=== PATIENT | female | born 1975 | race Caucasian/White ===

== ENCOUNTER 2016-09-20 19:23 | Inpatient (IN) | payer MEDICAID, OTHER ==
[~2016-09-20] VITALS: Ht 162.6 cm; Wt 72.6 kg
[2016-09-20 19:55] VITALS: BP 129/113
[2016-09-20] MEDS ORDERED: Solu-MEDROL 125mg Inj IVP ONE (20:00)
[2016-09-20] MEDS ORDERED: Dicyclomine HCl 10mg/5ml oral soln ORAL ONE (20:15)
--- NOTE | 2016-09-20 20:15 | Emergency Room Report ---
History of Present Illness General Chief Complaint: Diarrhea Source: Patient Present Illness HPI [id number] presents with multiple episodes of watery diarrhea without abd pain, nausea/vomiting or fever/chills associated with now-resolved lower extremity weakness, unable to walk. History of MS, "I'm on every medication" but not on steroids. Last MS exacerbation was years ago. Allergies: Coded Allergies: No Known Allergies (Unverified , 09/20/16) Patient History Past Medical History: other - MS Past Surgical History: none Pertinent Family History: none Social History: Denies: alcohol use, drug use, smoking Last Menstrual Period: 2 days ago Now: No Immunizations: UTD Reviewed Nursing Documentation: PMH: Agreed, PSxH: Agreed Review of Systems All Other Systems: negative except mentioned in HPI Physical Exam Vital Signs Date Time Temp Pulse Resp B/P Pulse Ox O2 Delivery O2 Flow Rate FiO2 09/20/16 19:37 99.0 98 16 129/78 97 Room Air Sp02 EP Interpretation: reviewed, normal General Appearance: normal inspection, well appearing, no apparent distress, alert, GCS 15, non-toxic Head: normocephalic, atraumatic Eyes: bilateral eye EOMI, bilateral eye PERRL ENT: normal ENT inspection, hearing grossly normal, normal voice Neck: normal inspection, full range of motion, supple, no bony tend Respiratory: normal inspection, lungs clear, normal breath sounds, no respiratory distress, no retraction, no wheezing Cardiovascular #1: regular rate, rhythm, no edema Gastrointestinal: normal inspection, normal bowel sounds, non tender, soft, no guarding, no hernia Genitourinary: no CVA tenderness Musculoskeletal: normal inspection, back normal, normal range of motion, Carmina' s Sign negative Neurologic: normal inspection, alert, oriented x3, responsive, fingernail technician III-XII nml as tested, motor strength/tone normal, DTRs symmetric, speech normal Psychiatric: normal inspection, judgement/insight normal, mood/affect normal Skin: normal inspection, normal color, no rash Lymphatic: normal inspection Medical Decision Making Diagnostic Impression: Primary Impression: Diarrhea Qualified Codes: R19.7 - Diarrhea, unspecified Additional Impressions: Weakness Multiple sclerosis exacerbation ER Course No focal neuro deficits currently. VSS. Afebrile. Airway patent. Labs: No leuks. H&H stable. No metabolic derangement. Per Uptodate, scheduled 500mg BID methylsolumedrol for presumed MS exacerbation. Will need MRI on the medicine floor Diarrhea approved with medication Endorsed to Dr Singh for PANEL admission/med surg at 853pm. Rhythm Strip Diag. Results EP Interpretation: yes Rate: 83 Rhythm: NSR, no PVC's, no ectopy Last Vital Signs Date Time Temp Pulse Resp B/P Pulse Ox O2 Delivery O2 Flow Rate FiO2 09/20/16 19:37 99.0 98 16 129/78 97 Room Air Status: improved Disposition: ADMITTED INPATIENT Condition: Serious MICHELLE BARKSDALE M.D. Sep 20, 2016 20:15
[2016-09-20 20:19] LABS: BASOPHILS % (AUTO) 1.1 % (0.0-2.0); EOSINOPHILS % (AUTO) 0.3 % (0.0-3.0); LYMPHOCYTES % (AUTO) 13.7 % (20.0-45.0); MEAN CORPUSCULAR HEMOGLOBIN 32.7 PG (27.0-31.0); MEAN CORPUSCULAR HGB CONC 33.8 G/DL (32.0-36.0); MEAN CORPUSCULAR VOLUME 97 FL (80-99); MEAN PLATELET VOLUME 7.8 FL (6.5-10.1); NEUTROPHILS % (AUTO) 79.9 % (45.0-75.0); PLATELET COUNT 222 K/UL (150-450); RED BLOOD COUNT 4.56 M/UL (4.20-5.40); RED CELL DISTRIBUTION WIDTH 11.8 % (11.6-14.8); WHITE BLOOD COUNT 7.4 K/UL (4.8-10.8)
[2016-09-20 20:34] LABS: ALANINE AMINOTRANSFERASE 23 U/L (3-33); ALBUMIN/GLOBULIN RATIO 1.6 (1.0-2.7); ANION GAP 17 (5-15); ASPARTATE AMINO TRANSFERASE 19 U/L (5-40); CALCIUM 9.6 mg/dL (8.6-10.2); CARBON DIOXIDE 24 mEQ/L (20-30); CHLORIDE 96 mEQ/L (98-107); CREATININE 0.6 mg/dL (0.5-0.9); GLOMERULAR FILTRATION RATE > 60 mL/min (>60); HEMOLYSIS 9; POTASSIUM 4.1 mEQ/L (3.4-4.9); SODIUM 137 mEQ/L (135-145); TOTAL PROTEIN 7.2 g/dL (6.6-8.7)
[2016-09-20 22:10] VITALS: BP 111/57
[2016-09-20] MEDS ORDERED: UNOBMED (22:34)
[2016-09-20 22:57] LABS: APPEARANCE,URINE CLEAR; KETONES,URINE NEGATIVE (NEGATIVE); LEUKOCYTE ESTERASE ,URINE 1+ (NEGATIVE); NITRITE,URINE NEGATIVE (NEGATIVE); PH,URINE 7 (4.5-8.0); PROTEIN,URINE 1+ (NEGATIVE); UROBILINOGEN,URINE NORMAL MG/DL (0.0-1.0)
[2016-09-20 23:25] LABS: BACTERIA,URINE MODERATE /HPF; SQUAMOUS EPITHELIAL CELL,UR MODERATE /LPF (NONE/OCC)
--- NOTE | 2016-09-20 23:56 | History & Physical ---
History and Physical History & Physicial H&P dictated [id number] KIEL SANTANA M.D. Sep 20, 2016 23:56
[2016-09-21] VITALS: BP 117/64
[2016-09-21] MEDS ORDERED: Morphine Sulfate 4mg/ml Inj IVP PRN
[2016-09-21] MEDS ORDERED: Morphine Sulfate 2mg/ml Inj IVP PRN
[2016-09-21] MEDS ORDERED: TECFIDERA240 MG PO (00:22)
[2016-09-21] MEDS ORDERED: CENTRUM COMPLE1 EAC1 PO (00:22)
[2016-09-21] MEDS ORDERED: TRILEPTAL600 MG PO (00:22)
[2016-09-21] MEDS ORDERED: TRAZODONE HCL50 MG ORAL (00:22)
[2016-09-21] MEDS ORDERED: ASPIRIN EC81 MG ORAL (00:22)
[2016-09-21] MEDS ORDERED: ZANTAC150 MG ORAL (00:22)
[2016-09-21] MEDS ORDERED: AZELASTINE137 MCG/0. NS (00:22)
[2016-09-21] MEDS ORDERED: AMPYRA10 MG PO (00:22)
[2016-09-21] MEDS ORDERED: SYSTANE BALANCE10 M1 OP (00:22)
[2016-09-21] MEDS: TraZODone 50mg tab ORAL PRN ×2 (00:59→21:52)
[2016-09-21 04:00] VITALS: BP 123/68
[2016-09-21 07:13] LABS: MEAN CORPUSCULAR HEMOGLOBIN 32.3 PG (27.0-31.0); MEAN CORPUSCULAR HGB CONC 34.2 G/DL (32.0-36.0); MEAN CORPUSCULAR VOLUME 94 FL (80-99); MEAN PLATELET VOLUME 7.7 FL (6.5-10.1); PLATELET COUNT 234 K/UL (150-450); RED BLOOD COUNT 4.55 M/UL (4.20-5.40); RED CELL DISTRIBUTION WIDTH 11.5 % (11.6-14.8); WHITE BLOOD COUNT 6.6 K/UL (4.8-10.8)
[2016-09-21 07:47] LABS: ANION GAP 18 (5-15); CALCIUM 9.5 mg/dL (8.6-10.2); CARBON DIOXIDE 22 mEQ/L (20-30); CHLORIDE 99 mEQ/L (98-107); CREATININE 0.6 mg/dL (0.5-0.9); GLOMERULAR FILTRATION RATE > 60 mL/min (>60); HEMOLYSIS 5; POTASSIUM 3.9 mEQ/L (3.4-4.9); SODIUM 139 mEQ/L (135-145)
[2016-09-21 08:13] VITALS: BP 99/52
[2016-09-21] MEDS ORDERED: Solu-MEDROL 125mg Inj IVP SCH (09:00)
[2016-09-21] MEDS: Aspirin EC 81mg tab ORAL SCH (09:00)
[2016-09-21] MEDS: Heparin 5000 units/ml inj SUBQ SCH ×2 (09:00→20:37)
--- NOTE | 2016-09-21 09:17 | History and Physical Report ---
DATE OF ADMISSION: 09/20/2016 HISTORY OF PRESENT ILLNESS: This is a 41-year-old female with history of relapsing remitting multiple sclerosis with last flare November 2015 who presents to the emergency room with lower extremity weakness as well as short-term amnesia. She does not remember what she ate today and why she is in the emergency room, other than lower extremity weakness, but does not remember when. She states that she is forgetting everything. She states that she has lower extremity weakness has resolved, however, prior to that she was unable to walk. She is followed by Dr. Perdoom as an outpatient. She takes several medications for MS, but does not remember what they are. She denies any urinary symptoms, fevers, chills, or any kind of infection. The patient was given Solu-Medrol 500 mg x1 in the ER. PAST MEDICAL HISTORY: Includes multiple sclerosis and anxiety. PAST SURGICAL HISTORY: None. MEDICATIONS: Reviewed from previous notes from [facility]. ALLERGIES: Ambien. SOCIAL HISTORY: The patient is a former smoker, but quit in 1999. No alcohol use. No drug use. FAMILY HISTORY: Noncontributory. REVIEW OF SYSTEMS: A 14-point review of systems is negative except for pertinent positives as mentioned above. PHYSICAL EXAMINATION: GENERAL: The patient is no acute distress. The patient is awake, alert, and oriented x3. VITAL SIGNS: Temperature is 98.2 degrees, pulse is 73, respiratory rate is 27, and blood pressure 111/67. HEENT: Normocephalic/atraumatic. NECK: Supple. No JVD. LUNGS: Clear to auscultation bilaterally. No crackles, rhonchi, or rales. CARDIOVASCULAR: Regular rate and rhythm. Normal S1 and S2. ABDOMEN: Soft, nontender, and nondistended. EXTREMITIES: No clubbing, cyanosis, or edema. PSYCHIATRIC: Appropriate mood and affect. LABORATORY AND DIAGNOSTIC DATA: CBC, white count 7.54, hemoglobin 14.9, and platelet count is 222,000. BMP, sodium 137, potassium 4.1, chloride 96, CO2 24, BUN 16, and creatinine 0.4. UA is 2 to 4 WBCs and 5 to 10 RBCs. ASSESSMENT AND PLAN: 1. Lower extremity weakness likely secondary to multiple sclerosis flare. 2. Multiple sclerosis, relapsing, remitting. 3. Anxiety disorder. PLAN: 1. Status post Solu-Medrol in the emergency room. 2. We will treat with 1 gram Solu-Medrol IV x3 days. 3. MRI of the brain and spine with and without contrast. 4. Continue home medications. 5. IV fluids. 6. DVT prophylaxis with heparin. TIME SPENT: Time spent on this patient is greater than 35 minutes. Osiel Singh MD DR: Thais JOB#: [id number] CC: RITO
[2016-09-21 09:41] LABS: BAND NEUTROPHILS % (MANUAL) 0 % (0-8); BASOPHILS % (MANUAL) 0 % (0-2); EOSINOPHILS % (MANUAL) 0 % (0-3); LYMPHOCYTES % (MANUAL) 12 % (20-45); NEUTROPHILS % (MANUAL) 86 % (45-75); PLATELET ESTIMATE ADEQUATE; PLATELET MORPHOLOGY NORMAL; TOTAL CELLS COUNTED 100
--- NOTE | 2016-09-21 10:19 | Diagnostic Imaging Report ---
Indication: Shortness of breath Technique: Single portable AP view of the chest. Findings: Comparison: None. The bones and extra pulmonary soft tissues, cardiomediastinal silhouette, pulmonary vasculature and parenchyma, and pleural surfaces are unremarkable. IMPRESSION: Negative portable AP chest.
[2016-09-21] MEDS ORDERED: LORazepam Inj 2mg/ml 1ml IV ONE (10:30)
--- NOTE | 2016-09-21 10:42 | Internal Med Progress Note ---
Subjective Date of Service: Sep 21, 2016 Physician Name Karlo Luna Attending Physician Osiel Singh M.D. Current Medications Medications (Trade) Dose Ordered Sig/Onesimo Route PRN Reason Start Time Stop Time Status Last Admin Dose Admin Acetaminophen (Tylenol) 650 mg Q4H PRN ORAL Mild Pain (Pain Scale 1-3) 09/21/16 00:00 10/21/16 00:00 Aspirin (Ecotrin) 81 mg DAILY ORAL 09/21/16 09:00 10/21/16 08:59 Dextrose (Dextrose 50%) STAT PRN IV Hypoglycemia 09/21/16 00:00 10/21/16 00:00 Diphenhydramine HCl (Benadryl) 25 mg Q6H PRN ORAL Itching/Pruritis 09/21/16 00:00 10/21/16 00:00 Heparin Sodium (Porcine) (Heparin 5000 units/ml) 5,000 units EVERY 12 HOURS SUBQ 09/21/16 09:00 10/21/16 08:59 Methylprednisolone Sodium Succinate (Solu-MEDROL) 1,000 mg DAILY IVP 09/21/16 09:00 09/22/16 12:00 Morphine Sulfate (Morphine Sulfate) 2 mg Q4H PRN IVP Moderate Pain (Pain Scale 4-6) 09/21/16 00:00 09/28/16 00:00 Morphine Sulfate (Morphine Sulfate) 4 mg Q4H PRN IVP Severe Pain (Pain Scale 7-10) 09/21/16 00:00 09/28/16 00:00 Multivitamins (Multivitamins) 1 tab DAILY ORAL 09/21/16 09:00 10/21/16 08:59 Ondansetron HCl (Zofran) 4 mg Q6H PRN IVP Nausea & Vomiting 09/21/16 00:00 10/21/16 00:00 Oxcarbazepine (Trileptal) 300 mg BID ORAL 09/21/16 09:00 10/21/16 08:59 Ranitidine HCl (Zantac) 150 mg TWICE A DAY ORAL 09/21/16 09:00 10/21/16 08:59 Sodium Chloride (Sodium Chloride 1000ml bag) 1,000 ml @ 75 mls/hr [id number] IVLG 09/21/16 00:59 10/21/16 00:58 Trazodone HCl (Desyrel) 50 mg BEDTIME PRN ORAL Insomnia 09/21/16 00:30 10/21/16 00:29 09/21/16 00:59 Allergies: Coded Allergies: No Known Allergies (Unverified , 09/20/16) ROS Limited/Unobtainable: No Constitutional: Reports: no symptoms HEENT: Reports: no symptoms Cardiovascular: Reports: no symptoms Respiratory: Reports: no symptoms Gastrointestinal/Abdominal: Reports: no symptoms Genitourinary: Reports: no symptoms Neurologic/Psychiatric: Reports: weakness - Bilat leg weakness Subjective 41 YO F admitted with bilat lower extremity weakness and Multiple Sclerosis exacerbation. Await MRI and Neurology consult. Cover for Int Med-Dr Singh. Objective Last Vital Signs Date Time Temp Pulse Resp B/P Pulse Ox O2 Delivery O2 Flow Rate FiO2 09/21/16 08:13 98.1 81 20 99/52 97 09/21/16 04:00 Room Air Laboratory Tests Test 09/20/16 20:11 09/20/16 22:35 09/21/16 06:15 White Blood Count 7.4 K/UL (4.8-10.8) 6.6 K/UL (4.8-10.8) Red Blood Count 4.56 M/UL (4.20-5.40) 4.55 M/UL (4.20-5.40) Hemoglobin 14.9 G/DL (12.0-16.0) 14.7 G/DL (12.0-16.0) Hematocrit 44.1 % (37.0-47.0) 42.9 % (37.0-47.0) Mean Corpuscular Volume 97 FL (80-99) 94 FL (80-99) Mean Corpuscular Hemoglobin 32.7 PG (27.0-31.0) H 32.3 PG (27.0-31.0) H Mean Corpuscular Hemoglobin Concent 33.8 G/DL (32.0-36.0) 34.2 G/DL (32.0-36.0) Red Cell Distribution Width 11.8 % (11.6-14.8) 11.5 % (11.6-14.8) L Platelet Count 222 K/UL (150-450) 234 K/UL (150-450) Mean Platelet Volume 7.8 FL (6.5-10.1) 7.7 FL (6.5-10.1) Neutrophils (%) (Auto) 79.9 % (45.0-75.0) H % (45.0-75.0) Lymphocytes (%) (Auto) 13.7 % (20.0-45.0) L % (20.0-45.0) Monocytes (%) (Auto) 5.0 % (1.0-10.0) % (1.0-10.0) Eosinophils (%) (Auto) 0.3 % (0.0-3.0) % (0.0-3.0) Basophils (%) (Auto) 1.1 % (0.0-2.0) % (0.0-2.0) Sodium Level 137 mEQ/L (135-145) 139 mEQ/L (135-145) Potassium Level 4.1 mEQ/L (3.4-4.9) 3.9 mEQ/L (3.4-4.9) Chloride Level 96 mEQ/L (98-107) L 99 mEQ/L (98-107) Carbon Dioxide Level 24 mEQ/L (20-30) 22 mEQ/L (20-30) Anion Gap 17 (5-15) H 18 (5-15) H Blood Urea Nitrogen 15 mg/dL (7-23) 16 mg/dL (7-23) Creatinine 0.6 mg/dL (0.5-0.9) 0.6 mg/dL (0.5-0.9) Estimat Glomerular Filtration Rate > 60 mL/min (>60) > 60 mL/min (>60) Glucose Level 105 mg/dL (74-106) 171 mg/dL (74-106) H Calcium Level 9.6 mg/dL (8.6-10.2) 9.5 mg/dL (8.6-10.2) Total Bilirubin 0.3 mg/dL (0.0-1.2) Aspartate Amino Transf (AST/SGOT) 19 U/L (5-40) Alanine Aminotransferase (ALT/SGPT) 23 U/L (3-33) Alkaline Phosphatase 46 U/L (35-104) Total Protein 7.2 g/dL (6.6-8.7) Albumin 4.5 g/dL (3.5-5.2) Globulin 2.7 g/dL Albumin/Globulin Ratio 1.6 (1.0-2.7) Urine Color Pale yellow Urine Appearance Clear Urine pH 7 (4.5-8.0) Urine Specific [place] 1.010 (1.005-1.035) Urine Protein 1+ (NEGATIVE) H Urine Glucose (UA) Negative (NEGATIVE) Urine Ketones Negative (NEGATIVE) Urine Occult Blood 4+ (NEGATIVE) H Urine Nitrite Negative (NEGATIVE) Urine Bilirubin Negative (NEGATIVE) Urine Urobilinogen Normal MG/DL (0.0-1.0) Urine Leukocyte Esterase 1+ (NEGATIVE) H Urine RBC 5-10 /HPF (0 - 2) H Urine WBC 2-4 /HPF (0 - 2) Urine Squamous Epithelial Cells Moderate /LPF (NONE/OCC) H Urine Bacteria Moderate /HPF (NONE) H Urine HCG, Qualitative Negative Differential Total Cells Counted 100 Neutrophils % (Manual) 86 % (45-75) H Lymphocytes % (Manual) 12 % (20-45) L Monocytes % (Manual) 2 % (1-10) Eosinophils % (Manual) 0 % (0-3) Basophils % (Manual) 0 % (0-2) Band Neutrophils 0 % (0-8) Platelet Estimate Adequate Platelet Morphology Normal Red Blood Cell Morphology Normal Intake and Output 09/20/16 09/21/16 19:00 07:00 Intake Total 330 ml Balance 330 ml Intake Oral 330 ml # Voids 5 Objective General: alert, cooperative, no distress, appears stated age Head: normocephalic, without obvious abnormality, atraumatic Eyes: conjunctivae/corneas clear. PERRL, EOM's intact Throat: lips, mucosa, and tongue normal. MMM Neck: supple, symmetrical, trachea midline, and no JVD Lungs: clear to auscultation bilaterally Heart: regular rate and rhythm, S1, S2 normal, no murmur, click, rub or gallop Abdomen: soft, non-tender, non-distended, bowel sounds normal; no masses or organomegaly Extremities: extremities normal, atraumatic, no cyanosis or edema. Pulses: 2+ and symmetric Skin: skin color, texture, turgor normal; no rashes or lesions Neurologic: grossly normal, no focal deficits. Motor strength 3/5 bilat lower ext Assessment/Plan Problem List: (1) Anxiety (2) Multiple sclerosis exacerbation Assessment & Plan: Await neurology consult. Await MRI brain and spine. Continue kenzie dose IV solumedrol (3) Weakness (4) Depression Assessment & Plan: continue trazodone. Status: not improved KARLO LUNA Sep 21, 2016 10:42
[2016-09-21] MEDS ORDERED: methylPREDNISolone Sod Succ 1,000 MG in NS 275 ML IVPB SCH (12:00)
--- NOTE | 2016-09-21 13:29 | Diagnostic Imaging Report ---
Indications: Multiple sclerosis, bilateral upper and lower extremity weakness Technique: Sagittal and axial T1 weighted and T2-weighted FLAIR, axial T2-weighted fat saturated fast spin echo, T2*-weighted gradient echo, and diffusion sequences of the brain were performed prior to IV gadolinium administration. Axial and coronal T1 weighted FLAIR sequence was performed following IV gadolinium administration. Findings: Comparison: None Multiple discrete foci of signal change are present throughout the bilateral cerebral periventricular white matter, having the appearance of parenchymal loss. These are surrounded by more confluent T2 signal hyperintensity throughout the bilateral periventricular and, deep, and subcortical white matter. Ventricles, cisterns, sulci are diffusely prominent. No evidence of mass or hemorrhage, mass effect, midline shift, hydrocephalus or increased intracranial pressure. No restricted diffusion. No abnormal enhancement. Central vascular flow is preserved. IMPRESSION: Multiple foci of periventricular signal change/encephalomalacia may represent old areas of demyelination Superimposed diffuse cerebral white matter T2 signal hyperintensity, nonspecific, may represent edema in the setting of acute inflammatory phase (though no gadolinium enhancement to support this), chronic microangiopathic change or other nonspecific leukoencephalopathy Atrophy, prominent for age
--- NOTE | 2016-09-21 13:31 | Diagnostic Imaging Report ---
Indications: Multiple sclerosis, bilateral upper and lower extremity weakness Technique: Sagittal STIR and T1 weighted FLAIR, axial 3-D COSMIC ASPIR, sagittal and axial T2 weighted fast spin echo and T1 weighted fat saturated fast spin echo sequences of the cervical spine performed prior to IV gadolinium administration. Sagittal and axial T1-weighted fat-saturated fast spin-echo sequences performed following IV gadolinium administration. Findings: Comparison: None The cervical spinal cord is normal in configuration and signal characteristics. No focal lesions or abnormal enhancement. Spinal canal is normal in caliber at all levels. No extradural masses or fluid collections. The cervical vertebrae are normal in configuration, signal characteristics, and alignment. No fracture, lytic destruction, or other acute change demonstrated. Intervertebral discs are normal in height without significant annular bulge/protrusion or marginal osteophyte formation. Paraspinous soft tissues are unremarkable. IMPRESSION: Negative MRI of the cervical spine without and with gadolinium
--- NOTE | 2016-09-21 13:34 | Diagnostic Imaging Report ---
Indications: Multiple sclerosis, bilateral upper and lower extremity weakness Technique: Sagittal STIR, sagittal and axial T1 weighted fast spin-echo, T1-weighted fat-saturated fast spin-echo, and T2 weighted fast spin echo sequences of the thoracic performed prior to IV gadolinium administration. Sagittal and axial T1-weighted fat-saturated fast spin-echo sequences performed following IV gadolinium administration. Findings: Comparison: None The thoracic spinal cord is normal in configuration and signal characteristics. No focal lesions or abnormal enhancement. Spinal canal is normal in caliber at all levels. No extradural masses or fluid collections. The thoracic vertebrae are normal in configuration, signal characteristics, and alignment. No fracture, lytic destruction, or other acute change demonstrated. Intervertebral discs are normal in height without significant annular bulge/protrusion or marginal osteophyte formation. Paraspinous soft tissues are unremarkable. IMPRESSION: Negative MRI of the thoracic spine without and with gadolinium
--- NOTE | 2016-09-21 13:37 | Diagnostic Imaging Report ---
Indications: Multiple sclerosis, bilateral upper and lower extremity weakness Technique: Sagittal STIR, sagittal and axial T1 weighted fast spin-echo, T1-weighted fat-saturated fast spin-echo, and T2 weighted fast spin echo sequences of the lumbar spine performed prior to IV gadolinium administration. Sagittal and axial T1-weighted fat-saturated fast spin-echo sequences performed following IV gadolinium administration. Findings: Comparison: None The conus medullaris and cauda equina are normal in configuration and signal characteristics. No focal lesions or abnormal enhancement. Spinal canal is normal in caliber at all levels. No extradural masses or fluid collections. The lumbar vertebrae are normal in configuration, signal characteristics, and alignment. No fracture, lytic destruction, or other acute change demonstrated. Intervertebral discs are normal in height without significant annular bulge/protrusion or marginal osteophyte formation. Paraspinous soft tissues are unremarkable. IMPRESSION: Negative MRI of the lumbar spine without and with gadolinium
[2016-09-21 16:02] VITALS: BP 134/58
--- NOTE | 2016-09-21 18:48 | Neurology Progress Note ---
Interim History Interim History ROS Limited/Unobtainable: Yes Complaints: i feel well Events: cant recall admission Objective Physical Exam Last Vital Signs Date Time Temp Pulse Resp B/P Pulse Ox O2 Delivery O2 Flow Rate FiO2 09/21/16 16:02 99.0 98 18 134/58 97 Room Air Laboratory Tests Test 09/20/16 20:11 09/20/16 22:35 09/21/16 06:15 White Blood Count 7.4 K/UL (4.8-10.8) 6.6 K/UL (4.8-10.8) Red Blood Count 4.56 M/UL (4.20-5.40) 4.55 M/UL (4.20-5.40) Hemoglobin 14.9 G/DL (12.0-16.0) 14.7 G/DL (12.0-16.0) Hematocrit 44.1 % (37.0-47.0) 42.9 % (37.0-47.0) Mean Corpuscular Volume 97 FL (80-99) 94 FL (80-99) Mean Corpuscular Hemoglobin 32.7 PG (27.0-31.0) H 32.3 PG (27.0-31.0) H Mean Corpuscular Hemoglobin Concent 33.8 G/DL (32.0-36.0) 34.2 G/DL (32.0-36.0) Red Cell Distribution Width 11.8 % (11.6-14.8) 11.5 % (11.6-14.8) L Platelet Count 222 K/UL (150-450) 234 K/UL (150-450) Mean Platelet Volume 7.8 FL (6.5-10.1) 7.7 FL (6.5-10.1) Neutrophils (%) (Auto) 79.9 % (45.0-75.0) H % (45.0-75.0) Lymphocytes (%) (Auto) 13.7 % (20.0-45.0) L % (20.0-45.0) Monocytes (%) (Auto) 5.0 % (1.0-10.0) % (1.0-10.0) Eosinophils (%) (Auto) 0.3 % (0.0-3.0) % (0.0-3.0) Basophils (%) (Auto) 1.1 % (0.0-2.0) % (0.0-2.0) Sodium Level 137 mEQ/L (135-145) 139 mEQ/L (135-145) Potassium Level 4.1 mEQ/L (3.4-4.9) 3.9 mEQ/L (3.4-4.9) Chloride Level 96 mEQ/L (98-107) L 99 mEQ/L (98-107) Carbon Dioxide Level 24 mEQ/L (20-30) 22 mEQ/L (20-30) Anion Gap 17 (5-15) H 18 (5-15) H Blood Urea Nitrogen 15 mg/dL (7-23) 16 mg/dL (7-23) Creatinine 0.6 mg/dL (0.5-0.9) 0.6 mg/dL (0.5-0.9) Estimat Glomerular Filtration Rate > 60 mL/min (>60) > 60 mL/min (>60) Glucose Level 105 mg/dL (74-106) 171 mg/dL (74-106) H Calcium Level 9.6 mg/dL (8.6-10.2) 9.5 mg/dL (8.6-10.2) Total Bilirubin 0.3 mg/dL (0.0-1.2) Aspartate Amino Transf (AST/SGOT) 19 U/L (5-40) Alanine Aminotransferase (ALT/SGPT) 23 U/L (3-33) Alkaline Phosphatase 46 U/L (35-104) Total Protein 7.2 g/dL (6.6-8.7) Albumin 4.5 g/dL (3.5-5.2) Globulin 2.7 g/dL Albumin/Globulin Ratio 1.6 (1.0-2.7) Urine Color Pale yellow Urine Appearance Clear Urine pH 7 (4.5-8.0) Urine Specific [place] 1.010 (1.005-1.035) Urine Protein 1+ (NEGATIVE) H Urine Glucose (UA) Negative (NEGATIVE) Urine Ketones Negative (NEGATIVE) Urine Occult Blood 4+ (NEGATIVE) H Urine Nitrite Negative (NEGATIVE) Urine Bilirubin Negative (NEGATIVE) Urine Urobilinogen Normal MG/DL (0.0-1.0) Urine Leukocyte Esterase 1+ (NEGATIVE) H Urine RBC 5-10 /HPF (0 - 2) H Urine WBC 2-4 /HPF (0 - 2) Urine Squamous Epithelial Cells Moderate /LPF (NONE/OCC) H Urine Bacteria Moderate /HPF (NONE) H Urine HCG, Qualitative Negative Differential Total Cells Counted 100 Neutrophils % (Manual) 86 % (45-75) H Lymphocytes % (Manual) 12 % (20-45) L Monocytes % (Manual) 2 % (1-10) Eosinophils % (Manual) 0 % (0-3) Basophils % (Manual) 0 % (0-2) Band Neutrophils 0 % (0-8) Platelet Estimate Adequate Platelet Morphology Normal Red Blood Cell Morphology Normal General: well developed, well nourished, no acute distress Head: atraumatic Neck: no rigidity Neurologic Exam Mental Status: awake, alert, oriented x4, other - poor recent memory, amnestic on events Speech: other - dysarthria, slurred speech Language: no aphasia Cranial Nerve II: other - p 2mm rla fundi poorly seen Cranial Nerves III, IV, : other Cranial Nerve V: normal facial sensations Cranial Nerve VII: no facial asymmetry, normal facial expressions Cranial Nerve VIII: normal hearing, no nystagmus Cranial Nerve IX: normal palate elevation, gag response Cranial Nerve X: no voice hoarseness Cranial Nerve XI: SCM symmetric, trapezii function normal Cranial Nerve XII: tongue midline, no tongue atrophy/fasciculations Motor System: no involuntary movement, no muscle wasting, other - spastic BLE Sensory: normal pinprick Coordination: normal finger to nose bilaterally Deep Tendon Reflexes: 4+ ankle (L), 4+ ankle (R), 4+ bicep (L), 4+ bicep (R), 4 + brachioradialis (L), 4+ brachioradialis (R), 4+ knee (L), 4+ knee (R), 4+ tricep (L), 4+ tricep (R) Reflexes: extensor plantar (L), extensor plantar (R) Impression/Recommendations Problems: (1) Multiple sclerosis exacerbation (2) Diarrhea Status: stable, not improved Recommendations # [id number] off steroids hydrate cont present rx WENDI REESE Sep 21, 2016 18:48
[2016-09-21 20:00] VITALS: BP 105/56
[2016-09-22] VITALS: BP 93/48
--- NOTE | 2016-09-22 00:48 | Consultation ---
DATE OF CONSULTATION: 09/21/2016 HISTORY OF PRESENT ILLNESS: This is a 41 years old female, seen in neurological consultation to evaluate exacerbation of multiple sclerosis. The patient at this point has no recollection of events stating that she is not sure why she is in the hospital. According to medical records, known that she was admitted after having several episodes of watery diarrhea without associated symptoms such as abdominal pain. No nausea or vomiting. No fever, no chills. She was complaining of significant weakness in her both lower extremities, and difficulty with ambulation. She was brought to emergency room with vital signs stable, blood pressure 129/78, heart rate of 98, and temperature 99.0. Her initial laboratory work included normal CBC study, chemistry panel was unremarkable except anion gap of 17, chloride 96, urinalysis with 1+ protein, 1+ leukocyte esterase, and moderate bacteria now. Chest x-ray are negative for any acute changes. Following admission, she was given 500 mg twice a day Solu-Medrol for presumed mass exacerbation, diarrhea improved with treatment. MRI of the cervical, lumbar spine and thoracic spine with and without contrast was negative, MRI of the brain now revealed multiple fossa periventricular signal change with encephalomalacia representing old areas of demyelination, no evidence of acute demyelination noted. Current treatment list included Solu-Medrol 500 mg b.i.d., Benadryl, Bentyl, Tylenol, morphine, Zofran, , Trileptal 300 mg b.i.d. Zantac, trazodone 50 mg at bedtime. Prior to admission, the patient was maintained on aspirin, Tecfidera 240 mg twice a day, ranitidine, trazodone, but also Ampyra 10 milligram twice a day. ALLERGIES: Ambien. PAST MEDICAL HISTORY: The patient has a history of multiple sclerosis for the last 20 years with periodic exacerbation most recently last year, neurological status included abnormal gait, she is using walker or she likes to push a wheelchair in front of her. She is legally blind. SOCIAL HISTORY: Lives with her family, and daughter. She attends daycare, No alcohol, no drug abuse, and nonsmoker. FAMILY HISTORY: Noncontributory. REVIEW OF SYSTEMS: The patient indicates generalized weakness, difficulty ambulation. She has a intermittent headaches, dizzy spells, especially when getting up from supine position. Denies chest pain or palpitations. No respiratory problems. Denies abdominal pain or discomfort. No urinary incontinence. PHYSICAL EXAMINATION: GENERAL: A well-developed, well-nourished female, not in acute distress, lying comfortably in bed after having dinner. VITAL SIGNS: Now stable, she has blood pressure 134/58, temperature 99.0 degrees. HEENT: Head, normocephalic. No evidence of injuries. Eyes, ears, and throat are clear. NECK: Supple. No meningeal signs. MUSCULOSKELETAL: Unremarkable. There is no deformities. There is a bruise in the right knee, which the patient is unaware of. Peripheral pulses 1+ symmetric. MENTAL STATUS: The patient's speech is accelerated and somewhat slurred, at times difficult to understand. She was oriented to her name, age, address, but rather poor historian. Forgetful, limited information. She knew it is the holiday and asked "to pray for me." She asked if it is appropriate for her to go to work. CRANIAL NERVES: CRANIAL NERVE II: Pupils are 3 mm responding to light and accommodation. Visual acuity, light perception. CRANIAL NERVE V: Normal corneal responses. CRANIAL NERVE VII: No facial asymmetry. Normal hearing. CRANIAL NERVE XII: Normal limits. MOTOR EXAMINATION: Revealed increased muscle tone both lower extremities, strength 5/5 in all extremities except 5-/5 right hamstring. There is bilateral sustained clonus both ankles. Deep tendon reflex is very brisk 3+ upper extremities, 4+ both lower extremities with Babinski bilaterally. Sensory exam normal to pinprick and light touch. Gait not tested. The patient indicated that she is able to sit, but she is not sure if she will be able to keep balance for ambulation. IMPRESSION: 1. Multiple sclerosis recurrent, remitting. 2. Diarrhea, dehydration with transient changes in level of consciousness. 3. Cognitive impairment most likely related to underlying multiple sclerosis. 4. Legal blindness. RECOMMENDATION: The patient probably at her baseline. She has retrograde amnesia on the event of admission, there is no evidence of seizure activities, but the patient did have uncontrolled diarrhea, and very likely resulted in dehydration and exacerbation of symptomatology. The patient now appears stabilized. MRI studies revealed no evidence of ongoing acute demyelination, this chronic process noted on MRI of the brain only. I would suggest to stop the steroids, continue her supportive care. Continue with appropriate hydration, get PT/OT assessment. Baseline laboratory work to include B12, folate, thyroid function, vitamin D level, and LIZETTE sedimentation rate. Thank you for allowing me to see this interesting patient in neurologic consultation. Noel Diaz M.D. DR: Alfonso JOB#: [id number] CC:
[2016-09-22 04:00] VITALS: BP 117/53
[2016-09-22 08:10] VITALS: BP 118/62
[2016-09-22] MEDS: Aspirin EC 81mg tab ORAL SCH (08:14)
[2016-09-22] MEDS: Heparin 5000 units/ml inj SUBQ SCH ×2 (08:15→21:00)
[2016-09-22 10:22] LABS: BASOPHILS % (AUTO) 0.4 % (0.0-2.0); LYMPHOCYTES % (AUTO) 10.5 % (20.0-45.0); MEAN CORPUSCULAR HEMOGLOBIN 32.4 PG (27.0-31.0); MEAN CORPUSCULAR HGB CONC 33.5 G/DL (32.0-36.0); MEAN CORPUSCULAR VOLUME 97 FL (80-99); MEAN PLATELET VOLUME 7.8 FL (6.5-10.1); MONOCYTES % (AUTO) 5.9 % (1.0-10.0); NEUTROPHILS % (AUTO) 83.2 % (45.0-75.0); PLATELET COUNT 240 K/UL (150-450); RED BLOOD COUNT 4.33 M/UL (4.20-5.40); RED CELL DISTRIBUTION WIDTH 11.8 % (11.6-14.8); WHITE BLOOD COUNT 14.7 K/UL (4.8-10.8)
[2016-09-22 11:17] LABS: ANION GAP 15 (5-15); CALCIUM 9.2 mg/dL (8.6-10.2); CARBON DIOXIDE 25 mEQ/L (20-30); CHLORIDE 101 mEQ/L (98-107); CREATININE 0.6 mg/dL (0.5-0.9); GLOMERULAR FILTRATION RATE > 60 mL/min (>60); HEMOLYSIS 5; POTASSIUM 3.9 mEQ/L (3.4-4.9); SODIUM 141 mEQ/L (135-145)
[2016-09-22 11:27] VITALS: BP 122/71
[2016-09-22] MEDS ORDERED: LORazepam 1mg tab ORAL ONE (12:30)
[2016-09-22] MEDS: cefTRIAXone 1 GM in NS 55 ML IVPB SCH (14:56)
[2016-09-22 16:05] VITALS: BP 97/58
--- NOTE | 2016-09-22 16:34 | Internal Med Progress Note ---
Subjective Date of Service: Sep 22, 2016 Physician Name Kenneth Luna Attending Physician Osiel Singh M.D. Current Medications Medications (Trade) Dose Ordered Sig/Onesimo Route PRN Reason Start Time Stop Time Status Last Admin Dose Admin Acetaminophen (Tylenol) 650 mg Q4H PRN ORAL Mild Pain (Pain Scale 1-3) 09/21/16 00:00 10/21/16 00:00 Aspirin (Ecotrin) 81 mg DAILY ORAL 09/21/16 09:00 10/21/16 08:59 09/22/16 08:14 Ceftriaxone Sodium/Sodium Chloride (Rocephin/Sodium Chloride) 55 ml @ 110 mls/hr Q24H IVPB 09/22/16 14:00 09/29/16 13:59 09/22/16 14:56 Dextrose (Dextrose 50%) STAT PRN IV Hypoglycemia 09/21/16 00:00 10/21/16 00:00 Diphenhydramine HCl (Benadryl) 25 mg Q6H PRN ORAL Itching/Pruritis 09/21/16 00:00 10/21/16 00:00 09/22/16 08:15 Heparin Sodium (Porcine) (Heparin 5000 units/ml) 5,000 units EVERY 12 HOURS SUBQ 09/21/16 09:00 10/21/16 08:59 Morphine Sulfate (Morphine Sulfate) 2 mg Q4H PRN IVP Moderate Pain (Pain Scale 4-6) 09/21/16 00:00 09/28/16 00:00 Morphine Sulfate (Morphine Sulfate) 4 mg Q4H PRN IVP Severe Pain (Pain Scale 7-10) 09/21/16 00:00 09/28/16 00:00 Multivitamins 1 tab 1 tab DAILY ORAL 09/21/16 09:00 10/21/16 08:59 09/22/16 08:15 Ondansetron HCl (Zofran) 4 mg Q6H PRN IVP Nausea & Vomiting 09/21/16 00:00 10/21/16 00:00 Oxcarbazepine (Trileptal) 300 mg BID ORAL 09/21/16 09:00 10/21/16 08:59 09/22/16 08:15 Ranitidine HCl (Zantac) 150 mg TWICE A DAY ORAL 09/21/16 09:00 10/21/16 08:59 09/22/16 08:15 Sodium Chloride (Sodium Chloride 1000ml bag) 1,000 ml @ 75 mls/hr [id number] IVLG 09/21/16 00:59 10/21/16 00:58 Trazodone HCl (Desyrel) 50 mg BEDTIME PRN ORAL Insomnia 09/21/16 00:30 10/21/16 00:29 09/21/16 21:52 Allergies: Coded Allergies: No Known Allergies (Unverified , 09/20/16) ROS Limited/Unobtainable: No Constitutional: Reports: no symptoms HEENT: Reports: no symptoms Cardiovascular: Reports: no symptoms Respiratory: Reports: no symptoms Gastrointestinal/Abdominal: Reports: no symptoms Genitourinary: Reports: no symptoms Neurologic/Psychiatric: Reports: weakness Subjective 41 YO F admitted with bilat lower extremity weakness and Multiple Sclerosis exacerbation. See MRI result and Neurology consult. Cover for Int Med-Dr Singh. Objective Last Vital Signs Date Time Temp Pulse Resp B/P Pulse Ox O2 Delivery O2 Flow Rate FiO2 09/22/16 16:05 97.6 76 20 97/58 98 Room Air Laboratory Tests Test 09/21/16 20:20 09/22/16 10:05 Carbamazepine (Tegretol) Level < 2.0 ug/mL (4.0-12.0) L White Blood Count 14.7 K/UL (4.8-10.8) #H Red Blood Count 4.33 M/UL (4.20-5.40) Hemoglobin 14.1 G/DL (12.0-16.0) Hematocrit 42.0 % (37.0-47.0) Mean Corpuscular Volume 97 FL (80-99) Mean Corpuscular Hemoglobin 32.4 PG (27.0-31.0) H Mean Corpuscular Hemoglobin Concent 33.5 G/DL (32.0-36.0) Red Cell Distribution Width 11.8 % (11.6-14.8) Platelet Count 240 K/UL (150-450) Mean Platelet Volume 7.8 FL (6.5-10.1) Neutrophils (%) (Auto) 83.2 % (45.0-75.0) H Lymphocytes (%) (Auto) 10.5 % (20.0-45.0) L Monocytes (%) (Auto) 5.9 % (1.0-10.0) Eosinophils (%) (Auto) 0.0 % (0.0-3.0) Basophils (%) (Auto) 0.4 % (0.0-2.0) Sodium Level 141 mEQ/L (135-145) Potassium Level 3.9 mEQ/L (3.4-4.9) Chloride Level 101 mEQ/L (98-107) Carbon Dioxide Level 25 mEQ/L (20-30) Anion Gap 15 (5-15) Blood Urea Nitrogen 20 mg/dL (7-23) Creatinine 0.6 mg/dL (0.5-0.9) Estimat Glomerular Filtration Rate > 60 mL/min (>60) Glucose Level 128 mg/dL (74-106) H Calcium Level 9.2 mg/dL (8.6-10.2) Microbiology Date/Time Source Procedure Growth Status 09/20/16 22:35 Urine,Clean Catch Urine Culture - Preliminary Mixed Urogenital Contaminants Resulted Intake and Output 09/21/16 09/22/16 19:00 07:00 Intake Total 400 ml 650 ml Balance 400 ml 650 ml Intake Oral 650 ml Other 400 ml # Voids 4 4 Objective General: alert, cooperative, no distress, appears stated age Head: normocephalic, without obvious abnormality, atraumatic Eyes: conjunctivae/corneas clear. PERRL, EOM's intact Throat: lips, mucosa, and tongue normal. MMM Neck: supple, symmetrical, trachea midline, and no JVD Lungs: clear to auscultation bilaterally Heart: regular rate and rhythm, S1, S2 normal, no murmur, click, rub or gallop Abdomen: soft, non-tender, non-distended, bowel sounds normal; no masses or organomegaly Extremities: extremities normal, atraumatic, no cyanosis or edema. Pulses: 2+ and symmetric Skin: skin color, texture, turgor normal; no rashes or lesions Neurologic: grossly normal, no focal deficits. Motor strength 3/5 bilat lower ext Assessment/Plan Problem List: (1) Anxiety (2) Multiple sclerosis exacerbation Assessment & Plan: Await neurology consult. MRI brain and spine=no new areas of demyelination. D/C high dose IV Solumedrol per neurology PT/OT (3) Weakness (4) Depression Assessment & Plan: continue trazodone. Status: not improved KENNETH LUNA Sep 22, 2016 16:34
[2016-09-22 19:58] VITALS: BP 115/65
[2016-09-22] MEDS: TraZODone 50mg tab ORAL PRN (21:51)
[2016-09-23] VITALS: BP 100/63
[2016-09-23 04:00] VITALS: BP 107/69
[2016-09-23 07:15] LABS: BASOPHILS % (AUTO) 1.3 % (0.0-2.0); EOSINOPHILS % (AUTO) 0.4 % (0.0-3.0); LYMPHOCYTES % (AUTO) 26.3 % (20.0-45.0); MEAN CORPUSCULAR HEMOGLOBIN 32.3 PG (27.0-31.0); MEAN CORPUSCULAR HGB CONC 33.3 G/DL (32.0-36.0); MEAN CORPUSCULAR VOLUME 97 FL (80-99); MEAN PLATELET VOLUME 7.7 FL (6.5-10.1); MONOCYTES % (AUTO) 7.3 % (1.0-10.0); NEUTROPHILS % (AUTO) 64.7 % (45.0-75.0); PLATELET COUNT 197 K/UL (150-450); RED BLOOD COUNT 4.29 M/UL (4.20-5.40); RED CELL DISTRIBUTION WIDTH 11.9 % (11.6-14.8); WHITE BLOOD COUNT 8.3 K/UL (4.8-10.8)
[2016-09-23 07:27] LABS: ANION GAP 12 (5-15); CALCIUM 8.7 mg/dL (8.6-10.2); CARBON DIOXIDE 26 mEQ/L (20-30); CHLORIDE 102 mEQ/L (98-107); CREATININE 0.5 mg/dL (0.5-0.9); GLOMERULAR FILTRATION RATE > 60 mL/min (>60); HEMOLYSIS 7; POTASSIUM 4.2 mEQ/L (3.4-4.9); SODIUM 140 mEQ/L (135-145)
[2016-09-23 07:34] VITALS: BP 121/78
[2016-09-23] MEDS: Aspirin EC 81mg tab ORAL SCH (08:23)
[2016-09-23] MEDS: Heparin 5000 units/ml inj SUBQ SCH ×2 (09:00→21:06)
[2016-09-23 12:00] VITALS: BP 102/63
--- NOTE | 2016-09-23 12:11 | Neurology Progress Note ---
Interim History Interim History ROS Limited/Unobtainable: No Complaints: i feel well Events: cant recall admission/ i fainted at home Objective Physical Exam Last Vital Signs Date Time Temp Pulse Resp B/P Pulse Ox O2 Delivery O2 Flow Rate FiO2 09/23/16 07:34 97.3 60 20 121/78 97 Room Air Laboratory Tests Test 09/23/16 05:00 White Blood Count 8.3 K/UL (4.8-10.8) Red Blood Count 4.29 M/UL (4.20-5.40) Hemoglobin 13.9 G/DL (12.0-16.0) Hematocrit 41.6 % (37.0-47.0) Mean Corpuscular Volume 97 FL (80-99) Mean Corpuscular Hemoglobin 32.3 PG (27.0-31.0) H Mean Corpuscular Hemoglobin Concent 33.3 G/DL (32.0-36.0) Red Cell Distribution Width 11.9 % (11.6-14.8) Platelet Count 197 K/UL (150-450) Mean Platelet Volume 7.7 FL (6.5-10.1) Neutrophils (%) (Auto) 64.7 % (45.0-75.0) Lymphocytes (%) (Auto) 26.3 % (20.0-45.0) Monocytes (%) (Auto) 7.3 % (1.0-10.0) Eosinophils (%) (Auto) 0.4 % (0.0-3.0) Basophils (%) (Auto) 1.3 % (0.0-2.0) Sodium Level 140 mEQ/L (135-145) Potassium Level 4.2 mEQ/L (3.4-4.9) Chloride Level 102 mEQ/L (98-107) Carbon Dioxide Level 26 mEQ/L (20-30) Anion Gap 12 (5-15) Blood Urea Nitrogen 21 mg/dL (7-23) Creatinine 0.5 mg/dL (0.5-0.9) Estimat Glomerular Filtration Rate > 60 mL/min (>60) Glucose Level 94 mg/dL (74-106) Calcium Level 8.7 mg/dL (8.6-10.2) General: well developed, well nourished, no acute distress Head: atraumatic Neck: no rigidity Neurologic Exam Mental Status: awake, alert, oriented x4, other - poor recent memory, amnestic on events Speech: other - dysarthria, slurred speech Language: no aphasia Cranial Nerve II: other - p 2mm rla fundi poorly seen Cranial Nerves III, IV, : other Cranial Nerve V: normal facial sensations Cranial Nerve VII: no facial asymmetry, normal facial expressions Cranial Nerve VIII: normal hearing, no nystagmus Cranial Nerve IX: normal palate elevation, gag response Cranial Nerve X: no voice hoarseness Cranial Nerve XI: SCM symmetric, trapezii function normal Cranial Nerve XII: tongue midline, no tongue atrophy/fasciculations Motor System: no involuntary movement, no muscle wasting, other - spastic BLE Sensory: normal pinprick Coordination: normal finger to nose bilaterally Deep Tendon Reflexes: 4+ ankle (L), 4+ ankle (R), 4+ bicep (L), 4+ bicep (R), 4 + brachioradialis (L), 4+ brachioradialis (R), 4+ knee (L), 4+ knee (R), 4+ tricep (L), 4+ tricep (R) Reflexes: extensor plantar (L), extensor plantar (R) Impression/Recommendations Problems: (1) Multiple sclerosis exacerbation (2) Diarrhea (3) syncope episode Status: not improved Recommendations # [id number] off steroids hydrate cont present rx orto BP restart Elie/WENDI Roland Sep 23, 2016 12:11
--- NOTE | 2016-09-23 12:19 | Internal Med Progress Note ---
Subjective Date of Service: Sep 23, 2016 Physician Name Kenneth Luna Attending Physician Osiel Singh M.D. Current Medications Medications (Trade) Dose Ordered Sig/Onesimo Route PRN Reason Start Time Stop Time Status Last Admin Dose Admin Acetaminophen (Tylenol) 650 mg Q4H PRN ORAL Mild Pain (Pain Scale 1-3) 09/21/16 00:00 10/21/16 00:00 Aspirin (Ecotrin) 81 mg DAILY ORAL 09/21/16 09:00 10/21/16 08:59 09/23/16 08:23 Ceftriaxone Sodium/Sodium Chloride (Rocephin/Sodium Chloride) 55 ml @ 110 mls/hr Q24H IVPB 09/22/16 14:00 09/29/16 13:59 09/22/16 14:56 Dextrose (Dextrose 50%) STAT PRN IV Hypoglycemia 09/21/16 00:00 10/21/16 00:00 Diphenhydramine HCl (Benadryl) 25 mg Q6H PRN ORAL Itching/Pruritis 09/21/16 00:00 10/21/16 00:00 09/22/16 08:15 Heparin Sodium (Porcine) (Heparin 5000 units/ml) 5,000 units EVERY 12 HOURS SUBQ 09/21/16 09:00 10/21/16 08:59 Morphine Sulfate (Morphine Sulfate) 2 mg Q4H PRN IVP Moderate Pain (Pain Scale 4-6) 09/21/16 00:00 09/28/16 00:00 Morphine Sulfate (Morphine Sulfate) 4 mg Q4H PRN IVP Severe Pain (Pain Scale 7-10) 09/21/16 00:00 09/28/16 00:00 Multivitamins 1 tab 1 tab DAILY ORAL 09/21/16 09:00 10/21/16 08:59 09/23/16 08:23 Ondansetron HCl (Zofran) 4 mg Q6H PRN IVP Nausea & Vomiting 09/21/16 00:00 10/21/16 00:00 Oxcarbazepine (Trileptal) 300 mg BID ORAL 09/21/16 09:00 10/21/16 08:59 09/23/16 08:25 Ranitidine HCl (Zantac) 150 mg TWICE A DAY ORAL 09/21/16 09:00 10/21/16 08:59 09/23/16 08:24 Sodium Chloride (Sodium Chloride 1000ml bag) 1,000 ml @ 75 mls/hr [id number] IVLG 09/21/16 00:59 10/21/16 00:58 Trazodone HCl (Desyrel) 50 mg BEDTIME PRN ORAL Insomnia 09/21/16 00:30 10/21/16 00:29 09/22/16 21:51 Allergies: Coded Allergies: No Known Allergies (Unverified , 09/20/16) ROS Limited/Unobtainable: No Constitutional: Reports: no symptoms HEENT: Reports: no symptoms Cardiovascular: Reports: no symptoms Respiratory: Reports: no symptoms Gastrointestinal/Abdominal: Reports: no symptoms Genitourinary: Reports: no symptoms Neurologic/Psychiatric: Reports: no symptoms Subjective 41 YO F admitted with bilat lower extremity weakness and Multiple Sclerosis exacerbation. See MRI result and Neurology consult. Cover for Int Med-Dr Singh. Await cardiology consult. Objective Last Vital Signs Date Time Temp Pulse Resp B/P Pulse Ox O2 Delivery O2 Flow Rate FiO2 09/23/16 07:34 97.3 60 20 121/78 97 Room Air Laboratory Tests Test 09/23/16 05:00 White Blood Count 8.3 K/UL (4.8-10.8) Red Blood Count 4.29 M/UL (4.20-5.40) Hemoglobin 13.9 G/DL (12.0-16.0) Hematocrit 41.6 % (37.0-47.0) Mean Corpuscular Volume 97 FL (80-99) Mean Corpuscular Hemoglobin 32.3 PG (27.0-31.0) H Mean Corpuscular Hemoglobin Concent 33.3 G/DL (32.0-36.0) Red Cell Distribution Width 11.9 % (11.6-14.8) Platelet Count 197 K/UL (150-450) Mean Platelet Volume 7.7 FL (6.5-10.1) Neutrophils (%) (Auto) 64.7 % (45.0-75.0) Lymphocytes (%) (Auto) 26.3 % (20.0-45.0) Monocytes (%) (Auto) 7.3 % (1.0-10.0) Eosinophils (%) (Auto) 0.4 % (0.0-3.0) Basophils (%) (Auto) 1.3 % (0.0-2.0) Sodium Level 140 mEQ/L (135-145) Potassium Level 4.2 mEQ/L (3.4-4.9) Chloride Level 102 mEQ/L (98-107) Carbon Dioxide Level 26 mEQ/L (20-30) Anion Gap 12 (5-15) Blood Urea Nitrogen 21 mg/dL (7-23) Creatinine 0.5 mg/dL (0.5-0.9) Estimat Glomerular Filtration Rate > 60 mL/min (>60) Glucose Level 94 mg/dL (74-106) Calcium Level 8.7 mg/dL (8.6-10.2) Microbiology Date/Time Source Procedure Growth Status 09/20/16 22:35 Urine,Clean Catch Urine Culture - Final Mixed Urogenital Contaminants Complete Intake and Output 09/22/16 09/23/16 18:59 06:59 Intake Total 450 ml Output Total 550 ml Balance -100 ml Intake Oral 450 ml Output Urine Total 550 ml # Voids 3 3 # Bowel Movements 1 Objective General: alert, cooperative, no distress, appears stated age Head: normocephalic, without obvious abnormality, atraumatic Eyes: conjunctivae/corneas clear. PERRL, EOM's intact Throat: lips, mucosa, and tongue normal. MMM Neck: supple, symmetrical, trachea midline, and no JVD Lungs: clear to auscultation bilaterally Heart: regular rate and rhythm, S1, S2 normal, no murmur, click, rub or gallop Abdomen: soft, non-tender, non-distended, bowel sounds normal; no masses or organomegaly Extremities: extremities normal, atraumatic, no cyanosis or edema. Pulses: 2+ and symmetric Skin: skin color, texture, turgor normal; no rashes or lesions Neurologic: grossly normal, no focal deficits. Motor strength 3/5 bilat lower ext Assessment/Plan Problem List: (1) Anxiety (2) Multiple sclerosis exacerbation Assessment & Plan: See neurology consult. MRI brain and spine=no new areas of demyelination. D/C high dose IV Solumedrol per neurology PT/OT (3) Weakness (4) Depression Assessment & Plan: continue trazodone. (5) syncope episode Assessment & Plan: Await cardiology consult. Status: stable LUNA,KENNETH Sep 23, 2016 12:19
--- NOTE | 2016-09-23 12:58 | Cardiac Electrophysiology PN ---
Subjective Subjective [id number] Objective Last 24 Hour Vital Signs Date Time Temp Pulse Resp B/P Pulse Ox O2 Delivery O2 Flow Rate FiO2 09/23/16 12:00 97.1 70 20 102/63 Room Air 09/23/16 07:34 97.3 60 20 121/78 97 Room Air 09/23/16 04:00 98.7 57 20 107/69 96 Room Air 09/23/16 00:00 98.1 59 20 100/63 97 Room Air 09/22/16 19:58 100.2 74 18 115/65 95 Room Air 09/22/16 16:05 97.6 76 20 97/58 98 Room Air Intake and Output 09/22/16 09/23/16 18:59 06:59 Intake Total 450 ml Output Total 550 ml Balance -100 ml Intake Oral 450 ml Output Urine Total 550 ml # Voids 3 3 # Bowel Movements 1 Laboratory Tests Test 09/23/16 05:00 White Blood Count 8.3 K/UL (4.8-10.8) Red Blood Count 4.29 M/UL (4.20-5.40) Hemoglobin 13.9 G/DL (12.0-16.0) Hematocrit 41.6 % (37.0-47.0) Mean Corpuscular Volume 97 FL (80-99) Mean Corpuscular Hemoglobin 32.3 PG (27.0-31.0) H Mean Corpuscular Hemoglobin Concent 33.3 G/DL (32.0-36.0) Red Cell Distribution Width 11.9 % (11.6-14.8) Platelet Count 197 K/UL (150-450) Mean Platelet Volume 7.7 FL (6.5-10.1) Neutrophils (%) (Auto) 64.7 % (45.0-75.0) Lymphocytes (%) (Auto) 26.3 % (20.0-45.0) Monocytes (%) (Auto) 7.3 % (1.0-10.0) Eosinophils (%) (Auto) 0.4 % (0.0-3.0) Basophils (%) (Auto) 1.3 % (0.0-2.0) Sodium Level 140 mEQ/L (135-145) Potassium Level 4.2 mEQ/L (3.4-4.9) Chloride Level 102 mEQ/L (98-107) Carbon Dioxide Level 26 mEQ/L (20-30) Anion Gap 12 (5-15) Blood Urea Nitrogen 21 mg/dL (7-23) Creatinine 0.5 mg/dL (0.5-0.9) Estimat Glomerular Filtration Rate > 60 mL/min (>60) Glucose Level 94 mg/dL (74-106) Calcium Level 8.7 mg/dL (8.6-10.2) Microbiology Date/Time Source Procedure Growth Status 09/20/16 22:35 Urine,Clean Catch Urine Culture - Final Mixed Urogenital Contaminants Complete ALEXANDER GRANADOS Sep 23, 2016 12:58
[2016-09-23] MEDS: cefTRIAXone 1 GM in NS 55 ML IVPB SCH (14:35)
--- NOTE | 2016-09-23 15:26 | Cardiology Report ---
APPROVED REPORT EXAM: Two-dimensional and M-mode echocardiogram with Doppler and color Doppler. INDICATION Chest Pain M-Mode DIMENSIONS IVSd1.1 (0.7-1.1cm)Left Atrium (MM)3.7 (1.6-4.0cm) LVDd3.6 (3.5-5.6cm)Aortic Root2.6 (2.0-3.7cm) PWd1.0 (0.7-1.1cm)Aortic Cusp Exc.1.6 (1.5-2.0cm) LVDs1.4 (2.5-4.0cm) PWs1.8 cm Normal left ventricular chamber size, systolic function and wall motion. Left ventricular ejection fraction estimated to be 60-65%. Mild left ventricular hypertrophy. No evidence of pericardial fat or effusion. All other cardiac chamber sizes are within normal limits. Focal aortic valve sclerosis with adequate cusp excursion Thickened mitral valve leaflets with normal excursion. Mild mitral annulus and aortic root calcification. Pulmonic valve not well visualized. Normal tricuspid valve structure. IVC is normal in size with physiologic collapse. A color flow and spectral Doppler study was performed and revealed: No aortic regurgitation. No mitral regurgitation. Mitral inflow indicate normal left ventricular diastolic function. No tricuspid regurgitation. Tricuspid systolic velocities suggests peak right ventricular systolic pressure of 10 mmHg
[2016-09-23 16:00] VITALS: BP 111/72
[2016-09-23 18:15] LABS: TROPONIN I < 0.30 ng/mL (<=0.30)
[2016-09-23 19:00] VITALS: BP 113/70
--- NOTE | 2016-09-23 20:48 | Consultation ---
DATE OF CONSULTATION: CARDIOLOGY CONSULTATION CONSULTING PHYSICIAN: Caleb Jerry M.D. REFERRING PHYSICIAN: Kenneth Vasquez M.D. REASON FOR CONSULTATION: Syncope and chest pain. HISTORY OF PRESENT ILLNESS: The patient is a 41-year-old [place] lady with history of multiple sclerosis for many years, who was brought to the emergency room after several episodes of watery diarrhea without associated symptoms. The patient does not have recollection of what happened, but she woke up in the hospital. The Electrophysiology consultation was requested for her syncope. The patient has already been evaluated by Dr. Diaz for exacerbation of multiple sclerosis. At the time of my evaluation, while the mother and nurse is present, the patient was also complaining of chest discomfort. She denies any cough, myocardial infarction, or hypertension. Following admission, the patient received 500 mg of Solu-Medrol for presumed MS exacerbation. The MRI of the cervical, lumbar, and thoracic spine with and without contrast was also negative and an MRI of the brain showed multiple periventricular signal change with encephalomalacia representing old areas of demyelination with no acute demyelination noted. PAST MEDICAL HISTORY: 1. Includes multiple sclerosis for more than 20 years. She uses a walker. 2. Legal blindness. SOCIAL HISTORY: She lives with her family, and daughter. FAMILY HISTORY: Noncontributory. REVIEW OF SYSTEMS: Review of systems was performed and was negative other than what was mentioned in the history of present illness. The patient has no recollection of the event, but started complaining of chest discomfort with no associated radiation while I was talking to her. PHYSICAL EXAMINATION: VITAL SIGNS: Blood pressure is 102/63, pulse is 70, respirations 20, and temperature 97.1 degrees. HEENT: Showed no JVD. Her right eye is blind. LUNGS: Clear. CARDIOVASCULAR: Shows regular S1 and S2 with no gallop or murmur. ABDOMEN: Soft and nontender. EXTREMITIES: No pitting edema. LABORATORY DATA: Labs show white count of 8.3, hemoglobin of 13.9, hematocrit of 41.6, and platelet count was 197,000. Sodium 140, potassium 4.2, BUN of 21, and creatinine 0.5. Her carbamazepine level is less than 2. ASSESSMENT AND PLAN: 1. Syncope, etiology is not clear at this time. This could be due to the patient's exacerbation of multiple sclerosis. We will get an echocardiogram and carotid Doppler for further evaluation. An MRI of the brain showed no evidence of ongoing acute demyelination chronic process. 2. Chest pain, again atypical. We will get an EKG and echocardiogram for further evaluation to completely rule out myocardial infarction protocol. 3. Recurrent remitting multiple sclerosis. 4. Diarrhea and dehydration. 5. Legal blindness. Thank very much, Dr. Vasquez, for allowing me to participate in the care of this patient. Please do not hesitate to contact me for any questions regarding my evaluation. Caleb Jerry M.D. DR: ABRIL JOB#: [id number] CC:
[2016-09-23] MEDS: TraZODone 50mg tab ORAL PRN (21:12)
[2016-09-23 23:40] LABS: TROPONIN I < 0.30 ng/mL (<=0.30)
[2016-09-24] VITALS: BP 99/53
[2016-09-24 04:00] VITALS: BP 95/67
[2016-09-24 05:10] LABS: BASOPHILS % (AUTO) 1.5 % (0.0-2.0); LYMPHOCYTES % (AUTO) 37.9 % (20.0-45.0); MEAN CORPUSCULAR HGB CONC 32.9 G/DL (32.0-36.0); MEAN CORPUSCULAR VOLUME 97 FL (80-99); MEAN PLATELET VOLUME 6.5 FL (6.5-10.1); MONOCYTES % (AUTO) 6.5 % (1.0-10.0); NEUTROPHILS % (AUTO) 52.2 % (45.0-75.0); PLATELET COUNT 194 K/UL (150-450); RED BLOOD COUNT 4.38 M/UL (4.20-5.40); WHITE BLOOD COUNT 5.5 K/UL (4.8-10.8)
[2016-09-24 05:25] LABS: ANION GAP 15 (5-15); CALCIUM 8.6 mg/dL (8.6-10.2); CARBON DIOXIDE 24 mEQ/L (20-30); CHLORIDE 101 mEQ/L (98-107); CREATININE 0.5 mg/dL (0.5-0.9); GLOMERULAR FILTRATION RATE > 60 mL/min (>60); HEMOLYSIS 3; POTASSIUM 4.2 mEQ/L (3.4-4.9); SODIUM 140 mEQ/L (135-145); TROPONIN I < 0.30 ng/mL (<=0.30)
[2016-09-24 08:00] VITALS: BP 99/67
[2016-09-24] MEDS: Aspirin EC 81mg tab ORAL SCH (08:57)
[2016-09-24] MEDS: Heparin 5000 units/ml inj SUBQ SCH ×2 (08:59→21:00)
[2016-09-24 12:01] VITALS: BP 106/51
[2016-09-24] MEDS: cefTRIAXone 1 GM in NS 55 ML IVPB SCH (13:09)
[2016-09-24 15:52] VITALS: BP 100/52
--- NOTE | 2016-09-24 16:15 | Cardiac Electrophysiology PN ---
Assessment/Plan Status Narrative Normal left ventricular chamber size, systolic function and wall motion. Left ventricular ejection fraction estimated to be 60-65%. Mild left ventricular hypertrophy. No evidence of pericardial fat or effusion. All other cardiac chamber sizes are within normal limits. Focal aortic valve sclerosis with adequate cusp excursion Thickened mitral valve leaflets with normal excursion. Mild mitral annulus and aortic root calcification. Pulmonic valve not well visualized. Normal tricuspid valve structure. IVC is normal in size with physiologic collapse. Assessment/Plan 1. Syncope, etiology is not clear at this time. This could be due to the patient's exacerbation of multiple sclerosis. Echocardiogram NL EF and no critical valvular pathology.MRI of the brain showed no evidence of ongoing acute demyelination process. 2. Chest pain, Atypical.Ruled out for [place]. EKG nonischemic and echocardiogram shows Nl EF. 3. Recurrent remitting multiple sclerosis. 4. Diarrhea and dehydration. 5. Legal blindness. LINDA RN Subjective Subjective No cardiac events overnight. Comfortable in NAD. Objective Last 24 Hour Vital Signs Date Time Temp Pulse Resp B/P Pulse Ox O2 Delivery O2 Flow Rate FiO2 09/24/16 15:52 97.5 65 18 100/52 98 Room Air 09/24/16 12:01 97.8 61 18 106/51 98 Room Air 09/24/16 08:00 97.0 59 18 99/67 98 Room Air 09/24/16 04:00 98.1 63 18 95/67 100 Room Air 09/24/16 00:00 99.0 66 18 99/53 96 09/23/16 19:00 98.2 78 22 113/70 97 Room Air Intake and Output 09/23/16 09/24/16 19:00 07:00 Intake Total 470 ml 900 ml Balance 470 ml 900 ml Intake Oral 320 ml IV Total 150 ml 900 ml # Voids 4 Laboratory Tests Test 09/23/16 17:30 09/23/16 23:20 09/24/16 05:00 Troponin I < 0.30 ng/mL (<=0.30) < 0.30 ng/mL (<=0.30) < 0.30 ng/mL (<=0.30) White Blood Count 5.5 K/UL (4.8-10.8) Red Blood Count 4.38 M/UL (4.20-5.40) Hemoglobin 14.0 G/DL (12.0-16.0) Hematocrit 42.6 % (37.0-47.0) Mean Corpuscular Volume 97 FL (80-99) Mean Corpuscular Hemoglobin 32.0 PG (27.0-31.0) H Mean Corpuscular Hemoglobin Concent 32.9 G/DL (32.0-36.0) Red Cell Distribution Width 12.0 % (11.6-14.8) Platelet Count 194 K/UL (150-450) Mean Platelet Volume 6.5 FL (6.5-10.1) Neutrophils (%) (Auto) 52.2 % (45.0-75.0) Lymphocytes (%) (Auto) 37.9 % (20.0-45.0) Monocytes (%) (Auto) 6.5 % (1.0-10.0) Eosinophils (%) (Auto) 2.0 % (0.0-3.0) Basophils (%) (Auto) 1.5 % (0.0-2.0) Sodium Level 140 mEQ/L (135-145) Potassium Level 4.2 mEQ/L (3.4-4.9) Chloride Level 101 mEQ/L (98-107) Carbon Dioxide Level 24 mEQ/L (20-30) Anion Gap 15 (5-15) Blood Urea Nitrogen 17 mg/dL (7-23) Creatinine 0.5 mg/dL (0.5-0.9) Estimat Glomerular Filtration Rate > 60 mL/min (>60) Glucose Level 95 mg/dL (74-106) Calcium Level 8.6 mg/dL (8.6-10.2) Objective HEENT: Showed no JVD. Her right eye is blind. LUNGS: Clear. CARDIOVASCULAR: Shows regular S1 and S2 with no gallop or murmur. ABDOMEN: Soft and nontender. EXTREMITIES: No pitting edema. ALEXANDER GRANADOS Sep 24, 2016 16:15
--- NOTE | 2016-09-24 17:04 | Internal Med Progress Note ---
Subjective Date of Service: Sep 24, 2016 Physician Name Kenneth Luna Attending Physician Osiel Singh M.D. Current Medications Medications (Trade) Dose Ordered Sig/Onesimo Route PRN Reason Start Time Stop Time Status Last Admin Dose Admin Acetaminophen (Tylenol) 650 mg Q4H PRN ORAL Mild Pain (Pain Scale 1-3) 09/21/16 00:00 10/21/16 00:00 Aspirin (Ecotrin) 81 mg DAILY ORAL 09/21/16 09:00 10/21/16 08:59 09/24/16 08:57 Ceftriaxone Sodium/Sodium Chloride (Rocephin/Sodium Chloride) 55 ml @ 110 mls/hr Q24H IVPB 09/22/16 14:00 09/29/16 13:59 09/24/16 13:09 Dextrose (Dextrose 50%) STAT PRN IV Hypoglycemia 09/21/16 00:00 10/21/16 00:00 Diphenhydramine HCl (Benadryl) 25 mg Q6H PRN ORAL Itching/Pruritis 09/21/16 00:00 10/21/16 00:00 09/23/16 23:07 Heparin Sodium (Porcine) (Heparin 5000 units/ml) 5,000 units EVERY 12 HOURS SUBQ 09/21/16 09:00 10/21/16 08:59 09/24/16 08:59 Morphine Sulfate (Morphine Sulfate) 2 mg Q4H PRN IVP Moderate Pain (Pain Scale 4-6) 09/21/16 00:00 09/28/16 00:00 Morphine Sulfate (Morphine Sulfate) 4 mg Q4H PRN IVP Severe Pain (Pain Scale 7-10) 09/21/16 00:00 09/28/16 00:00 Multivitamins 1 tab 1 tab DAILY ORAL 09/21/16 09:00 10/21/16 08:59 09/24/16 08:57 Ondansetron HCl (Zofran) 4 mg Q6H PRN IVP Nausea & Vomiting 09/21/16 00:00 10/21/16 00:00 Oxcarbazepine (Trileptal) 300 mg BID ORAL 09/21/16 09:00 10/21/16 08:59 09/24/16 08:57 Ranitidine HCl (Zantac) 150 mg TWICE A DAY ORAL 09/21/16 09:00 10/21/16 08:59 09/24/16 08:58 Sodium Chloride (Sodium Chloride 1000ml bag) 1,000 ml @ 75 mls/hr [id number] IVLG 09/21/16 00:59 10/21/16 00:58 09/24/16 04:44 Trazodone HCl (Desyrel) 50 mg BEDTIME PRN ORAL Insomnia 09/21/16 00:30 10/21/16 00:29 09/23/16 21:12 Allergies: Coded Allergies: No Known Allergies (Unverified , 09/20/16) ROS Limited/Unobtainable: No Constitutional: Reports: no symptoms HEENT: Reports: no symptoms Cardiovascular: Reports: no symptoms Respiratory: Reports: no symptoms Gastrointestinal/Abdominal: Reports: no symptoms Genitourinary: Reports: no symptoms Neurologic/Psychiatric: Reports: no symptoms Subjective 41 YO F admitted with bilat lower extremity weakness and Multiple Sclerosis exacerbation. See MRI result and Neurology consult. Cover for Int Med-Dr Singh. See cardiology consult. Objective Last Vital Signs Date Time Temp Pulse Resp B/P Pulse Ox O2 Delivery O2 Flow Rate FiO2 09/24/16 15:52 97.5 65 18 100/52 98 Room Air Laboratory Tests Test 09/23/16 17:30 09/23/16 23:20 09/24/16 05:00 Troponin I < 0.30 ng/mL (<=0.30) < 0.30 ng/mL (<=0.30) < 0.30 ng/mL (<=0.30) White Blood Count 5.5 K/UL (4.8-10.8) Red Blood Count 4.38 M/UL (4.20-5.40) Hemoglobin 14.0 G/DL (12.0-16.0) Hematocrit 42.6 % (37.0-47.0) Mean Corpuscular Volume 97 FL (80-99) Mean Corpuscular Hemoglobin 32.0 PG (27.0-31.0) H Mean Corpuscular Hemoglobin Concent 32.9 G/DL (32.0-36.0) Red Cell Distribution Width 12.0 % (11.6-14.8) Platelet Count 194 K/UL (150-450) Mean Platelet Volume 6.5 FL (6.5-10.1) Neutrophils (%) (Auto) 52.2 % (45.0-75.0) Lymphocytes (%) (Auto) 37.9 % (20.0-45.0) Monocytes (%) (Auto) 6.5 % (1.0-10.0) Eosinophils (%) (Auto) 2.0 % (0.0-3.0) Basophils (%) (Auto) 1.5 % (0.0-2.0) Sodium Level 140 mEQ/L (135-145) Potassium Level 4.2 mEQ/L (3.4-4.9) Chloride Level 101 mEQ/L (98-107) Carbon Dioxide Level 24 mEQ/L (20-30) Anion Gap 15 (5-15) Blood Urea Nitrogen 17 mg/dL (7-23) Creatinine 0.5 mg/dL (0.5-0.9) Estimat Glomerular Filtration Rate > 60 mL/min (>60) Glucose Level 95 mg/dL (74-106) Calcium Level 8.6 mg/dL (8.6-10.2) Intake and Output 09/23/16 09/24/16 19:00 07:00 Intake Total 470 ml 900 ml Balance 470 ml 900 ml Intake Oral 320 ml IV Total 150 ml 900 ml # Voids 4 Objective General: alert, cooperative, no distress, appears stated age Head: normocephalic, without obvious abnormality, atraumatic Eyes: conjunctivae/corneas clear. PERRL, EOM's intact Throat: lips, mucosa, and tongue normal. MMM Neck: supple, symmetrical, trachea midline, and no JVD Lungs: clear to auscultation bilaterally Heart: regular rate and rhythm, S1, S2 normal, no murmur, click, rub or gallop Abdomen: soft, non-tender, non-distended, bowel sounds normal; no masses or organomegaly Extremities: extremities normal, atraumatic, no cyanosis or edema. Pulses: 2+ and symmetric Skin: skin color, texture, turgor normal; no rashes or lesions Neurologic: grossly normal, no focal deficits. Motor strength 3/5 bilat lower ext Assessment/Plan Problem List: (1) Anxiety (2) Multiple sclerosis exacerbation Assessment & Plan: See neurology consult. MRI brain and spine=no new areas of demyelination. D/C high dose IV Solumedrol per neurology PT/OT (3) Weakness (4) Depression Assessment & Plan: continue trazodone. (5) syncope episode Assessment & Plan: See cardiology consult; cardiac workup normal. Status: stable Assessment/Plan Discharge planning: Home health KENNETH LUNA Sep 24, 2016 17:04
[2016-09-24 19:00] VITALS: BP 111/73
[2016-09-25] VITALS: BP 133/63
[2016-09-25 04:00] VITALS: BP 107/69
[2016-09-25 06:29] LABS: BASOPHILS % (AUTO) 1.9 % (0.0-2.0); EOSINOPHILS % (AUTO) 3.5 % (0.0-3.0); LYMPHOCYTES % (AUTO) 31.4 % (20.0-45.0); MEAN CORPUSCULAR HEMOGLOBIN 32.6 PG (27.0-31.0); MEAN CORPUSCULAR HGB CONC 33.5 G/DL (32.0-36.0); MEAN CORPUSCULAR VOLUME 97 FL (80-99); MONOCYTES % (AUTO) 6.6 % (1.0-10.0); NEUTROPHILS % (AUTO) 56.5 % (45.0-75.0); PLATELET COUNT 196 K/UL (150-450); RED BLOOD COUNT 4.45 M/UL (4.20-5.40); RED CELL DISTRIBUTION WIDTH 11.8 % (11.6-14.8); WHITE BLOOD COUNT 5.4 K/UL (4.8-10.8)
[2016-09-25 06:41] LABS: ANION GAP 11 (5-15); CALCIUM 8.8 mg/dL (8.6-10.2); CARBON DIOXIDE 24 mEQ/L (20-30); CHLORIDE 104 mEQ/L (98-107); CREATININE 0.5 mg/dL (0.5-0.9); GLOMERULAR FILTRATION RATE > 60 mL/min (>60); HEMOLYSIS 3; POTASSIUM 4.5 mEQ/L (3.4-4.9); SODIUM 139 mEQ/L (135-145)
[2016-09-25] MEDS: Aspirin EC 81mg tab ORAL SCH (08:18)
[2016-09-25] MEDS: Heparin 5000 units/ml inj SUBQ SCH ×2 (08:19→09:00)
[2016-09-25 08:30] VITALS: BP 106/66
[2016-09-25 11:36] VITALS: BP 118/70
[2016-09-25] MEDS: cefTRIAXone 1 GM in NS 55 ML IVPB SCH (14:15)
--- NOTE | 2016-09-25 14:20 | Cardiac Electrophysiology PN ---
Assessment/Plan Status Narrative Normal left ventricular chamber size, systolic function and wall motion. Left ventricular ejection fraction estimated to be 60-65%. Mild left ventricular hypertrophy. No evidence of pericardial fat or effusion. All other cardiac chamber sizes are within normal limits. Focal aortic valve sclerosis with adequate cusp excursion Thickened mitral valve leaflets with normal excursion. Mild mitral annulus and aortic root calcification. Pulmonic valve not well visualized. Normal tricuspid valve structure. IVC is normal in size with physiologic collapse. Assessment/Plan 1. Syncope, etiology not clear at this time. This could be due to the patient' s exacerbation of multiple sclerosis. Echocardiogram NL EF and no critical valvular pathology.MRI of the brain showed no evidence of ongoing acute demyelination process. 2. Chest pain, Atypical.Ruled out for [place]. EKG nonischemic and echocardiogram shows Nl EF.No recurrence. 3. Recurrent remitting multiple sclerosis. 4. Diarrhea and dehydration.Improving. 5. Legal blindness. DW mother and RN Subjective Subjective No cardiac events overnight. Comfortable in NAD.Mother at bedside.Wants to go home. Objective Last 24 Hour Vital Signs Date Time Temp Pulse Resp B/P Pulse Ox O2 Delivery O2 Flow Rate FiO2 09/25/16 11:36 98.1 72 16 118/70 09/25/16 08:30 97.9 65 16 106/66 98 Room Air 09/25/16 04:00 97.3 68 16 107/69 96 Room Air 09/25/16 02:50 98.0 09/25/16 01:43 98.0 09/25/16 00:00 97.0 79 18 133/63 95 Room Air 09/24/16 19:00 98.0 77 18 111/73 97 Room Air 09/24/16 15:52 97.5 65 18 100/52 98 Room Air Intake and Output 09/24/16 09/25/16 19:00 07:00 Intake Total 1860 ml 1470 ml Balance 1860 ml 1470 ml Intake Oral 1020 ml 720 ml IV Total 840 ml 750 ml # Voids 22 6 Laboratory Tests Test 09/25/16 05:10 White Blood Count 5.4 K/UL (4.8-10.8) Red Blood Count 4.45 M/UL (4.20-5.40) Hemoglobin 14.5 G/DL (12.0-16.0) Hematocrit 43.2 % (37.0-47.0) Mean Corpuscular Volume 97 FL (80-99) Mean Corpuscular Hemoglobin 32.6 PG (27.0-31.0) H Mean Corpuscular Hemoglobin Concent 33.5 G/DL (32.0-36.0) Red Cell Distribution Width 11.8 % (11.6-14.8) Platelet Count 196 K/UL (150-450) Mean Platelet Volume 7.0 FL (6.5-10.1) Neutrophils (%) (Auto) 56.5 % (45.0-75.0) Lymphocytes (%) (Auto) 31.4 % (20.0-45.0) Monocytes (%) (Auto) 6.6 % (1.0-10.0) Eosinophils (%) (Auto) 3.5 % (0.0-3.0) H Basophils (%) (Auto) 1.9 % (0.0-2.0) Sodium Level 139 mEQ/L (135-145) Potassium Level 4.5 mEQ/L (3.4-4.9) Chloride Level 104 mEQ/L (98-107) Carbon Dioxide Level 24 mEQ/L (20-30) Anion Gap 11 (5-15) Blood Urea Nitrogen 14 mg/dL (7-23) Creatinine 0.5 mg/dL (0.5-0.9) Estimat Glomerular Filtration Rate > 60 mL/min (>60) Glucose Level 100 mg/dL (74-106) Calcium Level 8.8 mg/dL (8.6-10.2) Objective HEENT: Showed no JVD. Her right eye is blind. LUNGS: Clear. CARDIOVASCULAR: Shows regular S1 and S2 with no gallop or murmur. ABDOMEN: Soft and nontender. EXTREMITIES: No pitting edema. ALEXANDER GRANADOS Sep 25, 2016 14:20
[2016-09-25 16:21] VITALS: BP 108/63
--- NOTE | 2016-09-25 17:56 | Internal Med Progress Note ---
Subjective Date of Service: Sep 25, 2016 Physician Name Kenneth Luna Attending Physician Osiel Singh M.D. Allergies: Coded Allergies: No Known Allergies (Unverified , 09/20/16) Subjective 41 YO F admitted with bilat lower extremity weakness and Multiple Sclerosis exacerbation. See MRI result and Neurology consult. Cover for Int Med-Dr Singh. See cardiology consult. Await discharge home today. Objective Last Vital Signs Date Time Temp Pulse Resp B/P Pulse Ox O2 Delivery O2 Flow Rate FiO2 09/25/16 16:21 97.9 80 14 108/63 100 Room Air Laboratory Tests Test 09/25/16 05:10 White Blood Count 5.4 K/UL (4.8-10.8) Red Blood Count 4.45 M/UL (4.20-5.40) Hemoglobin 14.5 G/DL (12.0-16.0) Hematocrit 43.2 % (37.0-47.0) Mean Corpuscular Volume 97 FL (80-99) Mean Corpuscular Hemoglobin 32.6 PG (27.0-31.0) H Mean Corpuscular Hemoglobin Concent 33.5 G/DL (32.0-36.0) Red Cell Distribution Width 11.8 % (11.6-14.8) Platelet Count 196 K/UL (150-450) Mean Platelet Volume 7.0 FL (6.5-10.1) Neutrophils (%) (Auto) 56.5 % (45.0-75.0) Lymphocytes (%) (Auto) 31.4 % (20.0-45.0) Monocytes (%) (Auto) 6.6 % (1.0-10.0) Eosinophils (%) (Auto) 3.5 % (0.0-3.0) H Basophils (%) (Auto) 1.9 % (0.0-2.0) Sodium Level 139 mEQ/L (135-145) Potassium Level 4.5 mEQ/L (3.4-4.9) Chloride Level 104 mEQ/L (98-107) Carbon Dioxide Level 24 mEQ/L (20-30) Anion Gap 11 (5-15) Blood Urea Nitrogen 14 mg/dL (7-23) Creatinine 0.5 mg/dL (0.5-0.9) Estimat Glomerular Filtration Rate > 60 mL/min (>60) Glucose Level 100 mg/dL (74-106) Calcium Level 8.8 mg/dL (8.6-10.2) Intake and Output 09/24/16 09/25/16 19:00 07:00 Intake Total 1860 ml 1470 ml Balance 1860 ml 1470 ml Intake Oral 1020 ml 720 ml IV Total 840 ml 750 ml # Voids 22 6 Objective General: alert, cooperative, no distress, appears stated age Head: normocephalic, without obvious abnormality, atraumatic Eyes: conjunctivae/corneas clear. PERRL, EOM's intact Throat: lips, mucosa, and tongue normal. MMM Neck: supple, symmetrical, trachea midline, and no JVD Lungs: clear to auscultation bilaterally Heart: regular rate and rhythm, S1, S2 normal, no murmur, click, rub or gallop Abdomen: soft, non-tender, non-distended, bowel sounds normal; no masses or organomegaly Extremities: extremities normal, atraumatic, no cyanosis or edema. Pulses: 2+ and symmetric Skin: skin color, texture, turgor normal; no rashes or lesions Neurologic: grossly normal, no focal deficits. Motor strength 3/5 bilat lower ext Assessment/Plan Problem List: (1) Anxiety (2) Multiple sclerosis exacerbation Assessment & Plan: See neurology consult. MRI brain and spine=no new areas of demyelination. D/C high dose IV Solumedrol per neurology PT/OT (3) Weakness (4) Depression Assessment & Plan: continue trazodone. (5) syncope episode Assessment & Plan: See cardiology consult; cardiac workup normal. Status: stable Assessment/Plan Discharge planning: Patient is self pay; Home health not available. D/C home today; follow up with primary care physician in 1 week. KENNETH LUNA Sep 25, 2016 17:56
--- NOTE | 2016-09-28 12:43 | Discharge Summary ---
Discharge Summary Hospital Course Date of Admission Sep 20, 2016 at 20:21 Date of Discharge Sep 25, 2016 at 16:36 Admitting Diagnosis exacerbation HPI Angelique Galo is a 41 year old female who was admitted on Sep 20, 2016 at 20: 21 for Exacerbation Hospital Course dc summary #[id number] Discharge Medications Continued Medications: Aspirin Ec* (Aspirin Ec*) 81 Mg Tablet.dr 81 MG ORAL DAILY, TAB Azelastine Hcl (Azelastine Hcl) 137 Mcg/0.137 Ml [place].pump 1 SPRAYS NS BID PRN for Runny nose Dalfampridine (Ampyra) 10 Mg Tab.er.12h 10 MG PO BID, TAB Dimethyl Fumarate (Tecfidera) 240 Mg Capsule.dr 240 MG PO BID, CAP Multivitamin/Iron/Folic Acid (Centrum Complete Multivit Tab) 1 Each Tablet 1 EACH PO DAILY, TAB Oxcarbazepine* (Trileptal*) 600 Mg Tablet 300 MG PO BID, TAB Propylene Glycol (Systane Balance) 10 Ml Drops 1 DRP OP BID, ML Ranitidine Hcl* (Zantac*) 150 Mg Tablet 150 MG ORAL TWICE A DAY, TAB Trazodone Hcl* (Desyrel*) 50 Mg Tablet 50 MG ORAL BEDTIME PRN for Insomnia, TAB Discharge Discharge Disposition Patient was discharged to Home () Discharge Diagnoses: Discharge Instructions Discharge Instructions Special Instructions I have been assigned to complete a D/C Summary on this account. I was not involved in the patient management Theodora Nieves NP ([place]) Sep 28, 2016 12:43
--- NOTE | 2016-09-28 22:44 | Cardiology Report ---
APPROVED REPORT EKG Measurement Heart [id number] Normal sinus rhythm Possible Inferior infarct, age undetermined Abnormal ECG
--- NOTE | 2016-09-29 03:48 | Discharge Summary 2 SIG ---
DATE OF ADMISSION: 09/20/2016 DATE OF DISCHARGE: 09/25/2016 REASON FOR ADMISSION: 41-year-old female with history of multiple sclerosis presented to the emergency room with a complaint of watery diarrhea. She denied abdominal pain, nausea, and vomiting. She denied fever and chills. She reported lower extremity weakness and inability to ambulate. The patient with recurrent remittent relapses of multiple sclerosis. Last exacerbation was a year ago. Workup in the emergency room revealed no focal deficit. Vital signs were stable. No fever. Patent airway. No leukocytosis. Stable hemoglobin and hematocrit. Electrolytes were within normal limits. The patient was treated with high dose of steroids for two doses in the emergency room and transferred to the floor for further management. ADMITTING DIAGNOSES: 1. Multiple sclerosis exacerbation 2. Lower extremity weakness. 3. Dehydration. 4. Diarrhea. 5. Anxiety disorder. 6. Legally blind. HOSPITAL STAY: The patient was admitted on the floor. Neurology consult was requested. Neurologist ordered an MRI of the brain along with MRI and CT of L-spine to rule out acute exacerbation. PT and OT were ordered. The patient also was ordered additional three days of the steroids while in the hospital. MRI of the brain revealed no evidence of ongoing acute demyelination, only noted chronic process. The patient undergone MRI and CT of L-spine as well, which revealed no acute pathology. Patient status post treatment with steroid. Intravenous fluids were provided. Renal parameters and electrolytes were closely monitored , and were stable. The patient had a syncopal episode. Cardiology consult was requested. Per bodybuilder, syncope likely related to MS exacerbation. Serial troponin negative. EKG revealed no ischemic changes. The patient was ruled out for acute CA. Echocardiogram revealed preserved ejection fraction of 60% to 65% and right ventricular systolic pressure of 10. No evidence of arrhythmia on telemetry. The patient was working with physical and occupational therapist. Neurologist recommended to restart Tecfidera and Ampyra. Fall precautions were maintained. Pain management was provided. Diarrhea resolved. No abdominal pain, no nausea, no vomiting, able to tolerate diet. The patient was on empiric antibiotics for possible urinary tract infection. However, urine culture revealed only mixed urogenital contaminants. Antibiotics were discontinued. The patient was stable for discharge home. No home health was arranged as the patient was a self-pay. Recommended followup with the primary doctor and neurologist. Continue treatment with Ampyra and Tecfidera. DISCHARGE DIAGNOSES: 1. Multiple sclerosis, recurrent, remittent. 2. Dehydration secondary to diarrhea. 3. Diarrhea. 4. Syncopal episode. 5. Lower extremities weakness. 6. Anxiety disorder. 7. Legally blind. 8. Cognitive impairment likely secondary to multiple sclerosis. 9. Transient change in level of consciousness likely secondary to multiple sclerosis. DISCHARGE MEDICATIONS: See medication reconciliation list. DISCHARGE INSTRUCTIONS: The patient was discharged home. Follow up with the primary medical doctor and neurologist. Osiel Singh MD I have been assigned to dictate discharge summary on this account and I was not involved in the patient's management. Theodora MunizCrouse HospitalLiz, N.P. DR: DEMARCUS JOB#: [id number] CC: RITO
--- NOTE | 2016-10-01 23:23 | Diagnostic Imaging Report ---
APPROVED REPORT CPT Code: 47891 Vascular Symptoms Syncope CAROTID (BILATERAL) - Imaging reveals no significant plaque within the right and left extracranial carotid arteries. The Doppler spectral flow analysis is within normal limits throughout the extracranial carotid arteries bilaterally. VERTEBRAL- The vertebral arteries are within normal limits.
== END 2016-09-25 16:36 | disposition home or self-care (01) | DRG 60 ==
LOC: ENRESERVTM → ENRESERVDT → EDBD 19:23 → EMR 19:51 → 4E 20:21 → EDBEDREQ 22:39 → 4E 09-22 10:32
DX: G35 Multiple sclerosis (principal); G93.89 Other specified disorders of brain; E86.0 Dehydration; H54.8 Legal blindness, as defined in USA; R19.7 Diarrhea, unspecified; F41.9 Anxiety disorder, unspecified; Z88.8 Allergy status to other drugs, medicaments and biological substances; Z87.891 Personal history of nicotine dependence; R55 Syncope and collapse; R07.89 Other chest pain
CPT/HCPCS: 36415; 70553; 71010; 72156; 72157; 72158; 80048; 80053; 80156; 81003; 81025; 84484; 85007; 85025; 87086; 93005; 93306; 93880; A9585

== ENCOUNTER 2018-01-17 20:04 | Emergency (ER) | payer MEDICAID ==
[~2018-01-17] VITALS: Ht 167.6 cm; Wt 56.7 kg
[~2018-01-17 20:04] MED LIST: AMPYRA10 MG PO; ASPIRIN EC81 MG ORAL; AZELASTINE137 MCG/0. NS; CENTRUM COMPLE1 EAC1 PO; SYSTANE BALANCE10 M1 OP; TECFIDERA240 MG PO; TRAZODONE HCL50 MG ORAL; TRILEPTAL600 MG PO; UNOBMED; ZANTAC150 MG ORAL
[2018-01-17] MEDS ORDERED: LORazepam Inj 2mg/ml 1ml IV ONE (20:15)
[2018-01-17] MEDS ORDERED: Hydrocortisone 100mg Inj IV ONE (20:30)
[2018-01-17 20:41] VITALS: BP 100/52
[2018-01-17 20:51] LABS: EOSINOPHILS % (AUTO) 0.5 % (0.0-3.0); HEMATOCRIT 41.1 % (37.0-47.0); HEMOGLOBIN 14.1 G/DL (12.0-16.0); LYMPHOCYTES % (AUTO) 18.9 % (20.0-45.0); MEAN CORPUSCULAR VOLUME 96 FL (80-99); MONOCYTES % (AUTO) 6.8 % (1.0-10.0); NEUTROPHILS % (AUTO) 72.8 % (45.0-75.0); PLATELET COUNT 161 K/UL (150-450); RED BLOOD COUNT 4.27 M/UL (4.20-5.40); RED CELL DISTRIBUTION WIDTH 11.9 % (11.6-14.8); WHITE BLOOD COUNT 4.7 K/UL (4.8-10.8)
[2018-01-17 20:52] LABS: ANION GAP 6 mmol/L (5-15); BLOOD UREA NITROGEN 16 mg/dL (7-18); CALCIUM 9.3 MG/DL (8.5-10.1); CARBON DIOXIDE 29 MMOL/L (21-32); CHLORIDE 103 MMOL/L (98-107); CREATININE 0.6 MG/DL (0.55-1.30); POTASSIUM 4.4 MMOL/L (3.5-5.1); SODIUM 138 MMOL/L (136-145)
[2018-01-17 20:56] LABS: ALANINE AMINOTRANSFERASE 23 U/L (12-78); ALBUMIN 3.4 G/DL (3.4-5.0); ALBUMIN/GLOBULIN RATIO 0.9 (1.0-2.7); ALKALINE PHOSPHATASE 56 U/L (46-116); ASPARTATE AMINO TRANSFERASE 13 U/L (15-37); BILIRUBIN,TOTAL 0.2 MG/DL (0.2-1.0)
--- NOTE | 2018-01-17 21:33 | Emergency Room Report ---
History of Present Illness General Chief Complaint: Seizure Source: Patient Present Illness HPI Patient is a 43-year-old female brought in by the EMS after increased seizure activity. Patient prior history of multiple sclerosis and had recent CVA. Patient was noted to have increased seizure activity. Patient was noted to have been in a facility and had subsequently been taken home. The patient was noted to have increased the seizure activity. Patient was taking Ativan for seizures. Allergies: Coded Allergies: No Known Allergies (Unverified , 09/20/16) Patient History Past Medical History: see triage record, seizures Last Menstrual Period: unknown Reviewed Nursing Documentation: PMH: Agreed; PSxH: Agreed Nursing Documentation-PMH Hx Cardiac Problems: No Hx Cancer: No Hx Cerebrovascular Accident: Yes - 2016 right defecit Hx Seizures: Yes Hx Multiple Sclerosis: Yes Review of Systems All Other Systems: negative except mentioned in HPI Physical Exam Vital Signs Date Time Temp Pulse Resp B/P (MAP) Pulse Ox O2 Delivery O2 Flow Rate FiO2 01/17/18 19:56 100.3 94 21 78/37 94 100.2 01/17/18 20:41 Room Air 100 General Appearance: lethargic, Chronically Ill ENT: hearing grossly normal, normal pharynx Neck: limited range of motion Respiratory: lungs clear, normal breath sounds Cardiovascular #1: normal peripheral pulses, regular rate, rhythm Gastrointestinal: normal inspection, normal bowel sounds, non tender, soft Musculoskeletal: decreased range of motion Neurologic: alert, aphasia, motor weakness, other - eyes open, twitching Skin: normal color Medical Decision Making Diagnostic Impression: Primary Impression: Multiple sclerosis Additional Impressions: UTI (urinary tract infection) Seizure CVA (cerebral vascular accident) ER Course Patient presented for seizure. The differential diagnosis included was not limited to syncope, urinary tract infection, abnormal medication level, multiple sclerosis flare, meningitis among others.Because of complexity of patient's case laboratory testing and imaging studies were ordered. The patient was noted to have a initial hypotension and patient was started on IV fluids. She was given IV hydrocortisone due to possible adrenal suppression. The patient was given IV Rocephin for empiric treatment due to previous history of urinary tract infections. Patient was discussed with Dr. Montalvo for [facility] the who agreed accept the patient has a transfer. The patient's mother refuse transfer.The patient is with who accepted the patient to [facility]. Labs Test 01/17/18 20:20 01/17/18 21:55 White Blood Count 4.7 K/UL (4.8-10.8) Red Blood Count 4.27 M/UL (4.20-5.40) Hemoglobin 14.1 G/DL (12.0-16.0) Hematocrit 41.1 % (37.0-47.0) Mean Corpuscular Volume 96 FL (80-99) Mean Corpuscular Hemoglobin 32.9 PG (27.0-31.0) Mean Corpuscular Hemoglobin Concent 34.1 G/DL (32.0-36.0) Red Cell Distribution Width 11.9 % (11.6-14.8) Platelet Count 161 K/UL (150-450) Mean Platelet Volume 8.5 FL (6.5-10.1) Neutrophils (%) (Auto) 72.8 % (45.0-75.0) Lymphocytes (%) (Auto) 18.9 % (20.0-45.0) Monocytes (%) (Auto) 6.8 % (1.0-10.0) Eosinophils (%) (Auto) 0.5 % (0.0-3.0) Basophils (%) (Auto) 1.0 % (0.0-2.0) Sodium Level 138 MMOL/L (136-145) Potassium Level 4.4 MMOL/L (3.5-5.1) Chloride Level 103 MMOL/L (98-107) Carbon Dioxide Level 29 MMOL/L (21-32) Anion Gap 6 mmol/L (5-15) Blood Urea Nitrogen 16 mg/dL (7-18) Creatinine 0.6 MG/DL (0.55-1.30) Estimat Glomerular Filtration Rate > 60 mL/min (>60) Glucose Level 97 MG/DL (74-106) Calcium Level 9.3 MG/DL (8.5-10.1) Total Bilirubin 0.2 MG/DL (0.2-1.0) Aspartate Amino Transf (AST/SGOT) 13 U/L (15-37) Alanine Aminotransferase (ALT/SGPT) 23 U/L (12-78) Alkaline Phosphatase 56 U/L (46-116) Troponin I 0.000 ng/mL (0.000-0.056) Total Protein 7.1 G/DL (6.4-8.2) Albumin 3.4 G/DL (3.4-5.0) Globulin 3.7 g/dL Albumin/Globulin Ratio 0.9 (1.0-2.7) Valproic Acid (Depakene) Level 130 MCG/ML (50-100) EKG Diagnostic Results Rate: normal Rhythm: NSR ST Segments: no acute changes Rhythm Strip Diag. Results EP Interpretation: yes Rhythm: NSR, no PVC's, no ectopy Last Vital Signs Date Time Temp Pulse Resp B/P (MAP) Pulse Ox O2 Delivery O2 Flow Rate FiO2 01/17/18 20:41 94 21 Room Air 100 01/17/18 20:41 100.3 100/52 95 100.3 Status: unchanged Disposition: XFER SHT-TRM HOSP Condition: Serious Scripts Cephalexin* (KEFLEX*) 500 Mg Capsule 500 MG ORAL EVERY 6 HOURS, #28 CAP Prov: Elio Cuevas MD 01/17/18 Referrals: [facility],REFERRING (PCP) Elio Cuevas MD Jan 17, 2018 21:33
[2018-01-17] MEDS ORDERED: Acetaminophen 650 MG SUPP RECTAL ONE (22:00)
[2018-01-17] MEDS ORDERED: cefTRIAXone 1 GM in NS 55 ML IVPB ONE (22:15)
[2018-01-17 22:51] LABS: APPEARANCE,URINE CLEAR; BILIRUBIN, URINE NEGATIVE (NEGATIVE); COLOR,URINE PALE YELLOW; GLUCOSE, URINE (UA) 3+ (NEGATIVE); KETONES,URINE NEGATIVE (NEGATIVE); LEUKOCYTE ESTERASE ,URINE 2+ (NEGATIVE); NITRITE,URINE POSITIVE (NEGATIVE); PH,URINE 8 (4.5-8.0); PROTEIN,URINE NEGATIVE (NEGATIVE); UROBILINOGEN,URINE NORMAL (NORMAL)
[2018-01-17 23:00] VITALS: BP 97/67
[2018-01-17] MEDS ORDERED: CEPHALEXIN500 MG ORAL (23:22)
[2018-01-18 00:41] VITALS: BP 100/45
[2018-01-18 02:11] VITALS: BP 100/45
--- NOTE | 2018-01-19 16:11 | Cardiology Report ---
APPROVED REPORT EKG Measurement Heart [id number] Normal sinus rhythm Right atrial enlargement Possible Inferior infarct, age undetermined Abnormal ECG
== END 2018-01-18 02:11 | disposition short-term general hospital (02) ==
LOC: EDSEX 20:04 → EDBD 20:04 → EMR 20:43 → EDBEDREQ 21:17 → EMR 01-18 02:11
DX: G35 Multiple sclerosis (principal); G40.909 Epilepsy, unspecified, not intractable, without status epilepticus; N39.0 Urinary tract infection, site not specified; I69.351 Hemiplegia and hemiparesis following cerebral infarction affecting right dominant side
CPT/HCPCS: 36415; 80053; 80164; 81003; 84484; 85025; 87081; 93005; 99284; J0696; J1720

== ENCOUNTER 2018-05-12 14:10 | Emergency (ER) | payer MEDICAID ==
[~2018-05-12] VITALS: Ht 160 cm; Wt 63.5 kg
[2018-05-12 14:10] VITALS: BP 110/56
[~2018-05-12 14:10] MED LIST changes: +ASPIRIN325 MG ORAL; +CEPHALEXIN500 MG ORAL; +COLACE100 MG ORAL; +DEPAKOTE500 MG PO; +DONEPEZIL HCL10 M2 ORAL; +KEPPRA500 M4 ORAL; +TECFIDERA1 EACH PO; +VITAMIN C500 M1 ORAL; +ZINC SULFATE220 M1 ORAL
[2018-05-12] MEDS ORDERED: levETIRAcetam 500 MG in D5W 110 ML IV ONE (14:30)
--- NOTE | 2018-05-12 14:30 | Emergency Room Report ---
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 Mom reports that patient has been on her usual medications with no recent changes, she takes Keppra and Depakote. Her neurologist is Dr. Balbuena, and her last seizure was about 6 weeks ago and her usual seizure frequency is 1-2 months. Patient was in the bed so did not injure herself as far as mother knows. Patient has been compliant with her medications as well. Allergies: Coded Allergies: ZOLPIDEM (Unverified Allergy, Unknown, 05/12/18) Patient History Past Medical History: see triage record Last Menstrual Period: Altered Reviewed Nursing Documentation: PMH: Agreed; PSxH: Agreed Nursing Documentation-PMH Past Medical History: No History, Except For Hx Cancer: No Hx Neurological Problems: Yes Hx Cerebrovascular Accident: Yes Hx Seizures: Yes Hx Multiple Sclerosis: Yes Review of Systems All Other Systems: limited - patient nonverbal Physical Exam Vital Signs Date Time Temp Pulse Resp B/P (MAP) Pulse Ox O2 Delivery O2 Flow Rate FiO2 05/12/18 13:54 98.1 82 14 107/53 100 Room Air Sp02 EP Interpretation: reviewed, normal General Appearance: no apparent distress, alert, non-toxic Head: normocephalic Eyes: bilateral eye normal inspection, bilateral eye EOMI - grossly, better with L ENT: normal ENT inspection, hearing grossly normal, normal pharynx, no angioedema, normal voice, moist mucus membranes Neck: normal inspection, full range of motion, supple, supple/symm/no masses Respiratory: chest non-tender, lungs clear, normal breath sounds, chest symmetrical, palpation of chest normal Cardiovascular #1: normal peripheral pulses, regular rate, rhythm Cardiovascular #2: 2+ radial (R), 2+ radial (L) Gastrointestinal: normal inspection, non tender, soft, no mass, no guarding, no rebound Rectal: deferred Genitourinary: normal inspection, no CVA tenderness Musculoskeletal: back normal, gait/station normal, normal range of motion, non- tender, no calf tenderness Neurologic: alert, responsive, heel compressor III-XII nml as tested - difficult to assess but no droop; +strabismus, motor strength/tone normal - normal in LUE/LLE; decreased on R and aphasia, sensory intact Psychiatric: mood/affect normal Skin: normal color, no rash, warm/dry, normal turgor Lymphatic: no adenopathy Medical Decision Making Diagnostic Impression: Primary Impression: Seizure disorder ER Course Patient given IV Keppra, she had a Depakote level which was therapeutic, head CT was obtained because her exam is limited given her pre-existing deficits, labs were unremarkable, urinalysis with no evidence of infection, will discharge with recommendation to follow-up with primary neurologist. Patient back to baseline. No suspected seizure. EKG Diagnostic Results EKG Time: 14:43 EP Interpretation: No ST segment changes, no T-wave inversions Rate: normal Rhythm: NSR ST Segments: no acute changes ASA given to the pt in ED: No Rhythm Strip Diag. Results Rhythm Strip Time: 14:30 EP Interpretation: yes Rate: 93 Rhythm: NSR, no PVC's, no ectopy CT/MRI/US Diagnostic Results CT/MRI/US Diagnostic Results : Imaging Test Ordered: ct brain Impression no acute dz Last Vital Signs Date Time Temp Pulse Resp B/P (MAP) Pulse Ox O2 Delivery O2 Flow Rate FiO2 05/12/18 13:54 98.1 82 14 107/53 100 Room Air Disposition: HOME, SELF-CARE Condition: Stable ASH MAYFIELD M.D May 12, 2018 14:30
[2018-05-12 14:47] LABS: APPEARANCE,URINE CLEAR; BILIRUBIN, URINE NEGATIVE (NEGATIVE); COLOR,URINE PALE YELLOW; GLUCOSE, URINE (UA) NEGATIVE (NEGATIVE); KETONES,URINE NEGATIVE (NEGATIVE); LEUKOCYTE ESTERASE ,URINE 1+ (NEGATIVE); NITRITE,URINE NEGATIVE (NEGATIVE); PH,URINE 8 (4.5-8.0); PROTEIN,URINE NEGATIVE (NEGATIVE); UROBILINOGEN,URINE NORMAL MG/DL (0.0-1.0)
[2018-05-12 14:48] LABS: HEMATOCRIT 41.3 % (37.0-47.0); HEMOGLOBIN 14.1 G/DL (12.0-16.0); MEAN CORPUSCULAR VOLUME 97 FL (80-99); PLATELET COUNT 102 K/UL (150-450); RED BLOOD COUNT 4.25 M/UL (4.20-5.40); RED CELL DISTRIBUTION WIDTH 11.4 % (11.6-14.8); WHITE BLOOD COUNT 3.4 K/UL (4.8-10.8)
[2018-05-12 14:56] LABS: ANION GAP 7 mmol/L (5-15); BLOOD UREA NITROGEN 16 mg/dL (7-18); CALCIUM 8.9 MG/DL (8.5-10.1); CARBON DIOXIDE 29 MMOL/L (21-32); CHLORIDE 104 MMOL/L (98-107); CREATININE 0.5 MG/DL (0.55-1.30); POTASSIUM 4.1 MMOL/L (3.5-5.1); SODIUM 140 MMOL/L (136-145)
[2018-05-12 15:02] LABS: ALANINE AMINOTRANSFERASE 22 U/L (12-78); ALBUMIN/GLOBULIN RATIO 0.9 (1.0-2.7); ALKALINE PHOSPHATASE 65 U/L (46-116); ASPARTATE AMINO TRANSFERASE 16 U/L (15-37); BILIRUBIN,TOTAL 0.3 MG/DL (0.2-1.0)
--- NOTE | 2018-05-12 16:01 | Diagnostic Imaging Report ---
Indications: Seizure Technique: Spiral acquisitions obtained through the brain. Angled axial and coronal 5 x 5 mm slices were reconstructed. Total dose length product 1365.53 mGycm. CTDI vol(s) 70.38 mGy. Dose reduction achieved using automated exposure control Comparison: Brain MRI dated 09/21/2016 Findings: There is marked central and cortical cerebral volume loss, out of proportion to patient's age. There is extensive deep white matter low-attenuation. No acute intercranial hemorrhage nor edema. No mass effect nor midline shift. There visualized orbits and sinuses are unremarkable. Intact calvarium Impression: Marked cerebral volume loss, out of proportion to patient's age. Correlate with clinical history Extensive deep white matter low-attenuation, possibly in keeping with stated clinical history of demyelinating disease, but could also indicate ischemic change Negative for acute intracranial bleed or mass effect The CT scanner at [facility] is accredited by the [employer] and the scans are performed using protocols designed to limit radiation exposure to as low as reasonably achievable to attain images of sufficient resolution adequate for diagnostic evaluation.
[2018-05-12 18:57] VITALS: BP 100/56
== END 2018-05-12 19:06 | disposition home or self-care (01) ==
LOC: EDBD 14:10 → EMR 14:40
DX: G40.409 Other generalized epilepsy and epileptic syndromes, not intractable, without status epilepticus (principal); G35 Multiple sclerosis; I69.320 Aphasia following cerebral infarction; I69.351 Hemiplegia and hemiparesis following cerebral infarction affecting right dominant side; Z88.8 Allergy status to other drugs, medicaments and biological substances
CPT/HCPCS: 36415; 70450; 80053; 80164; 81003; 81025; 85007; 85025; 93005; 96374; 99284; J1953

== ENCOUNTER 2018-07-27 21:34 | Emergency (ER) | payer MEDICAID ==
[~2018-07-27] VITALS: Ht 167.6 cm; Wt 59.0 kg
[2018-07-27 21:42] VITALS: BP 145/78
--- NOTE | 2018-07-27 21:42 | NUR ---
ED Nurse Note: Pt had 3 times seizure today the last is 30 mins ago. pt mother on bedside. pt was brought in by ambulance from home. pad placed on side rail. pt able to say yes when asked. will continue to monitor.
--- NOTE | 2018-07-27 22:03 | NUR ---
ED Nurse Note: pt having seizure. ermd made aware, versed was given per ermd order. mother on bedside. siderails padded. will continue to monitor.
--- NOTE | 2018-07-27 22:10 | NUR ---
ED Nurse Note: pt went to ct with tech
[2018-07-27 22:12] LABS: BASOPHILS % (AUTO) 1.5 % (0.0-2.0); EOSINOPHILS % (AUTO) 1.4 % (0.0-3.0); HEMATOCRIT 43.1 % (37.0-47.0); HEMOGLOBIN 14.6 G/DL (12.0-16.0); LYMPHOCYTES % (AUTO) 35.9 % (20.0-45.0); MEAN CORPUSCULAR VOLUME 102 FL (80-99); MONOCYTES % (AUTO) 10.3 % (1.0-10.0); NEUTROPHILS % (AUTO) 50.9 % (45.0-75.0); PLATELET COUNT 153 K/UL (150-450); RED BLOOD COUNT 4.24 M/UL (4.20-5.40); RED CELL DISTRIBUTION WIDTH 10.8 % (11.6-14.8); WHITE BLOOD COUNT 6.2 K/UL (4.8-10.8)
[2018-07-27] MEDS ORDERED: levETIRAcetam 1,000mg/NS100ml 100 ML IVPB ONE (22:15)
[2018-07-27] MEDS ORDERED: VITAMIN C500 M1 ORAL (22:18)
[2018-07-27] MEDS ORDERED: DEPAKOTE125 MG PO (22:18)
[2018-07-27 22:20] LABS: ANION GAP 7 mmol/L (5-15); BLOOD UREA NITROGEN 23 mg/dL (7-18); CALCIUM 8.9 MG/DL (8.5-10.1); CARBON DIOXIDE 29 MMOL/L (21-32); CHLORIDE 104 MMOL/L (98-107); CREATININE 0.5 MG/DL (0.55-1.30); POTASSIUM 4.5 MMOL/L (3.5-5.1); SODIUM 139 MMOL/L (136-145)
--- NOTE | 2018-07-27 22:21 | Emergency Room Report ---
History of Present Illness General Chief Complaint: Seizure Source: Patient, Family Member Present Illness HPI Unfortunate patient presents with history of multiple sclerosis, epilepsy Family reports of the patient has been trying cannabis pills Patient is also on multiple medications including Keppra and Depakote Patient started having seizures approximately 7 PM tonight and has had several since then There was no reports of vomiting or diarrhea Patient had one episode where she had lapse of consciousness However the other 2 episodes were essentially tremors in the upper extremity This is normal for the patient Mom also reports the patient usually has bladder infection when seizures happened frequently Denies any other recent fevers denies any neck pain or photophobia Allergies: Coded Allergies: ZOLPIDEM (Unverified Allergy, Unknown, 05/12/18) Patient History Past Medical History: see triage record Pertinent Family History: none Now: No Reviewed Nursing Documentation: PMH: Agreed; PSxH: Agreed Nursing Documentation-PMH Hx Cancer: No Hx Cerebrovascular Accident: Yes - stroke Hx Seizures: Yes Hx Multiple Sclerosis: Yes Review of Systems All Other Systems: negative except mentioned in HPI Physical Exam Vital Signs Date Time Temp Pulse Resp B/P (MAP) Pulse Ox O2 Delivery O2 Flow Rate FiO2 07/27/18 21:36 98.1 8 18 145/78 98 Sp02 EP Interpretation: reviewed, normal General Appearance: mild distress - Patient has active tremors in the upper extremity is awake otherwise Head: normocephalic, atraumatic Eyes: bilateral eye PERRL ENT: normal pharynx Neck: supple Respiratory: lungs clear, no retraction, no accessory muscle use Cardiovascular #1: regular rate, rhythm Gastrointestinal: non tender, soft Musculoskeletal: normal inspection Neurologic: alert, oriented x3, responsive Skin: no rash Lymphatic: no adenopathy Procedures Critical Care Time Critical Care Time 50 minutes for multiple re-evaluations, initial critical status including multiple seizure activity, not including any procedural time Medical Decision Making Diagnostic Impression: Primary Impression: Epileptic seizure, generalized Additional Impression: UTI (urinary tract infection) ER Course Patient present with multiple differentials and consideration Including but not limited to neurological, neurosurgical, infectious Patient required acute intervention with anti-epilepsy medication Has done better workup reveals UTI as well patient further hydrated given the multiple seizure activity today requires further inpatient care Labs Test 07/27/18 21:35 07/27/18 21:50 White Blood Count 6.2 K/UL (4.8-10.8) Red Blood Count 4.24 M/UL (4.20-5.40) Hemoglobin 14.6 G/DL (12.0-16.0) Hematocrit 43.1 % (37.0-47.0) Mean Corpuscular Volume 102 FL (80-99) Mean Corpuscular Hemoglobin 34.4 PG (27.0-31.0) Mean Corpuscular Hemoglobin Concent 33.9 G/DL (32.0-36.0) Red Cell Distribution Width 10.8 % (11.6-14.8) Platelet Count 153 K/UL (150-450) Mean Platelet Volume 7.8 FL (6.5-10.1) Neutrophils (%) (Auto) 50.9 % (45.0-75.0) Lymphocytes (%) (Auto) 35.9 % (20.0-45.0) Monocytes (%) (Auto) 10.3 % (1.0-10.0) Eosinophils (%) (Auto) 1.4 % (0.0-3.0) Basophils (%) (Auto) 1.5 % (0.0-2.0) Sodium Level 139 MMOL/L (136-145) Potassium Level 4.5 MMOL/L (3.5-5.1) Chloride Level 104 MMOL/L (98-107) Carbon Dioxide Level 29 MMOL/L (21-32) Anion Gap 7 mmol/L (5-15) Blood Urea Nitrogen 23 mg/dL (7-18) Creatinine 0.5 MG/DL (0.55-1.30) Estimat Glomerular Filtration Rate > 60 mL/min (>60) Glucose Level 97 MG/DL (74-106) Lactic Acid Level 1.80 mmol/L (0.4-2.0) Calcium Level 8.9 MG/DL (8.5-10.1) Total Bilirubin 0.4 MG/DL (0.2-1.0) Aspartate Amino Transf (AST/SGOT) 11 U/L (15-37) Alanine Aminotransferase (ALT/SGPT) 22 U/L (12-78) Alkaline Phosphatase 78 U/L (46-116) Total Creatine Kinase 19 U/L (26-308) Creatine Kinase MB < 0.5 NG/ML (0.0-3.6) Creatine Kinase MB Relative Index 2.6 Troponin I 0.000 ng/mL (0.000-0.056) Total Protein 6.1 G/DL (6.4-8.2) Albumin 3.2 G/DL (3.4-5.0) Globulin 2.9 g/dL Albumin/Globulin Ratio 1.1 (1.0-2.7) Lipase 235 U/L (73-393) Urine Color Pale yellow Urine Appearance Cloudy Urine pH 7 (4.5-8.0) Urine Specific [place] 1.010 (1.005-1.035) Urine Protein Negative (NEGATIVE) Urine Glucose (UA) Negative (NEGATIVE) Urine Ketones Negative (NEGATIVE) Urine Blood Negative (NEGATIVE) Urine Nitrite Positive (NEGATIVE) Urine Bilirubin Negative (NEGATIVE) Urine Urobilinogen Normal MG/DL (0.0-1.0) Urine Leukocyte Esterase 2+ (NEGATIVE) Urine RBC 0-2 /HPF (0 - 2) Urine WBC 20-30 /HPF (0 - 2) Urine Squamous Epithelial Cells Few /LPF (NONE/OCC) Urine Bacteria Many /HPF (NONE) Rhythm Strip Diag. Results EP Interpretation: yes Rate: 80 Rhythm: NSR, no PVC's, no ectopy Chest X-Ray Diagnostic Results Chest X-Ray Diagnostic Results : Chest X-Ray Ordered: Yes # of Views/Limited/Complete: 1 View Indication: Chest Pain EP Interpretation: Yes Interpretation: no consolidation, no effusion, no pneumothorax Impression: No acute disease Electronically Signed by: Bettye Mederos DO CT/MRI/US Diagnostic Results CT/MRI/US Diagnostic Results : Impression CT head no acute disease Last Vital Signs Date Time Temp Pulse Resp B/P (MAP) Pulse Ox O2 Delivery O2 Flow Rate FiO2 07/27/18 21:36 98.1 8 18 145/78 98 Status: improved Disposition: XFER SHT-TRM HOSP Condition: Improved Bettye Mederos DO Jul 27, 2018 22:20
[2018-07-27 22:33] LABS: ALANINE AMINOTRANSFERASE 22 U/L (12-78); ALBUMIN 3.2 G/DL (3.4-5.0); ALBUMIN/GLOBULIN RATIO 1.1 (1.0-2.7); ALKALINE PHOSPHATASE 78 U/L (46-116); ASPARTATE AMINO TRANSFERASE 11 U/L (15-37); BILIRUBIN,TOTAL 0.4 MG/DL (0.2-1.0); CKMB < 0.5 NG/ML (0.0-3.6); CREATINE KINASE 19 U/L (26-308)
[2018-07-27 22:48] LABS: APPEARANCE,URINE CLOUDY; BILIRUBIN, URINE NEGATIVE (NEGATIVE); COLOR,URINE PALE YELLOW; GLUCOSE, URINE (UA) NEGATIVE (NEGATIVE); KETONES,URINE NEGATIVE (NEGATIVE); LEUKOCYTE ESTERASE ,URINE 2+ (NEGATIVE); NITRITE,URINE POSITIVE (NEGATIVE); PH,URINE 7 (4.5-8.0); PROTEIN,URINE NEGATIVE (NEGATIVE); UROBILINOGEN,URINE NORMAL MG/DL (0.0-1.0)
--- NOTE | 2018-07-27 23:14 | NUR ---
ED Nurse Note: pt daughter called asking for update, left phone number [phone]
[2018-07-27 23:39] VITALS: BP 106/60
--- NOTE | 2018-07-27 23:39 | NUR ---
ED Nurse Note: pt on bed, denies any pain. no complain at the moment. no seizure noted. will continue to monitor.
[2018-07-28] MEDS ORDERED: cefTRIAXone 1 GM in NS 55 ML IVPB ONE (00:30)
[2018-07-28 01:26] VITALS: BP 101/50
--- NOTE | 2018-07-28 01:34 | NUR ---
ED Nurse Note: pt asleep on the gurney, daughter on bedside. awaiting for transfer details. pt has no complain at the moment. vss. will continue to monitor.
[2018-07-28 03:15] VITALS: BP 92/35
--- NOTE | 2018-07-28 03:15 | NUR ---
ED Nurse Note: pt was trasnferd to [facility] via gurney, pt was transfered by 2 emt from [facility], report given to michael eason.
--- NOTE | 2018-07-28 10:48 | Diagnostic Imaging Report ---
Indication: Chest pain Technique: One view of the chest Comparison: For 03/03/2017 Findings: Lungs and pleural spaces are clear. Heart size is normal. Minimal thoracolumbar scoliotic deformity again noted Impression: No acute process
--- NOTE | 2018-07-28 17:38 | Diagnostic Imaging Report ---
Indications: History of recurrent seizures Technique: Spiral acquisitions obtained through the brain. Angled axial and coronal 5 x 5 mm slices were reconstructed. Total dose length product 1347.93 mGycm. CTDI vol(s) 70.38 mGy. Dose reduction achieved using automated exposure control Comparison: 05/12/2018 Findings: Again demonstrated is marked enlargement of ventricles and extra axial CSF spaces and periventricular deep white matter low-attenuation consistent with chronic ischemic change. No acute intracranial hemorrhage nor edema, mass effect, nor midline shift. The calvarium is intact. The mastoids are clear. Impression: Chronic and age-related changes, disproportionate to patient's age-most likely related to history of demyelinating disease described on earlier reports Negative for acute intracranial bleed or mass effect This agrees with the preliminary interpretation provided overnight by [facility]. The CT scanner at [facility] is accredited by the [employer] and the scans are performed using protocols designed to limit radiation exposure to as low as reasonably achievable to attain images of sufficient resolution adequate for diagnostic evaluation.
--- NOTE | 2018-07-30 16:14 | Cardiology Report ---
APPROVED REPORT EKG Measurement Heart [id number] Sinus rhythm Possible Left atrial enlargement Low voltage QRS Possible Lateral infarct, age undetermined Possible Inferior infarct, age undetermined Abnormal ECG
== END 2018-07-28 03:15 | disposition short-term general hospital (02) ==
LOC: EDBD 21:34 → EMR 21:40
DX: G40.409 Other generalized epilepsy and epileptic syndromes, not intractable, without status epilepticus (principal); N39.0 Urinary tract infection, site not specified; Z86.73 Personal history of transient ischemic attack (TIA), and cerebral infarction without residual deficits; G35 Multiple sclerosis
CPT/HCPCS: 36415; 70450; 71045; 80053; 81003; 82550; 82553; 83605; 83690; 84484; 85025; 87040; 87086; 87181; 93005; 96365; 96367; 96375; 99291; J0696; J1953; J2250